=== PATIENT | male | born 1950 | race Caucasian/White ===

== ENCOUNTER → 2016-08-30 | Outpatient (CLI) | payer MEDICARE | END | disposition home or self-care (01) | LOC: LABPAT 15:35 | PROVIDERS: ATTEND Orthopaedic Surgery Orthopaedic Surgery of the Spine | DX: Z01.812 Encounter for preprocedural laboratory examination (principal) | CPT/HCPCS: 87070 ==

== ENCOUNTER → 2016-09-02 | Outpatient (CLI) | payer MEDICARE | LOC: LABWHC1 10:00 | PROVIDERS: ATTEND Orthopaedic Surgery Orthopaedic Surgery of the Spine | DX: Z01.812 Encounter for preprocedural laboratory examination (principal) | CPT/HCPCS: 86850; 86900; 86901 ==

== ENCOUNTER 2016-09-07 12:35 | Inpatient (IN) | payer MEDICARE, OTHER ==
[2016-09-01 14:35] VITALS: BMI 35.9
[~2016-09-07 12:35] MED LIST: BACITRACIN 50,000 UNIT, POLYMYXIN B 500,000 UNIT in SODIUM CHLORIDE 0.9% IRRIGATIO 1,00... IRRIGATION ONE; DEXAMETHASONE SOD PHOSPHATE 10 MG/ML 1 ML VIAL IV ONE; HYDROmorphone 1 MG/ML 1 ML SYRINGE IVP PRN; LACTATED RINGERS 1,000 ML IV SCH; MIDAZOLAM 2 MG/2 ML VIAL IV PRN; ONDANSETRON 4 MG/2 ML VIAL IVP ONE; ceFAZolin 2 GM in SODIUM CHLORIDE 0.9% 100 ML IVPB ONE
[2016-09-07] MEDS ORDERED: LIDOCAINE 1% 20 ML VIAL (10MG/ML) FOR IV START INTRADERMA ONE (13:12)
[2016-09-07] MEDS ORDERED: LIDOCAINE 1% INJ 10MG/ML (20 ML MDV) ONE (15:54)
[2016-09-07] MEDS ORDERED: PHENYLEPHRINE-0.9% NACL SYG 1 MG/10 ML SYRINGE ONE (15:54)
[2016-09-07] MEDS ORDERED: GLYCOPYRROLATE 0.2 MG/ML 2 ML VIAL ONE (15:54)
[2016-09-07] MEDS ORDERED: PROPOFOL 10 MG/ML 20 ML VIAL IV ONE (15:54)
[2016-09-07] MEDS ORDERED: fentaNYL (PF) 50 MCG/ML 2 ML AMP ONE (15:54)
[2016-09-07] MEDS ORDERED: MIDAZOLAM 2 MG/2 ML VIAL ONE (15:54)
[2016-09-07] MEDS ORDERED: SUCCINYLCHOLINE CHLORIDE 100 MG/5 ML SYR IV ONE (15:54)
[2016-09-07] MEDS ORDERED: LIDOCAINE 0.5%-EPI 1:200,000 50 ML VIAL SQ ONE (16:32)
[2016-09-07] MEDS ORDERED: GELATIN SPONGE,ABSORB (LARGE) 1 EACH SPONGE TOPICAL ONE (16:32)
[2016-09-07] MEDS ORDERED: methylPREDNISolone ACETATE 80 MG/ML 1 ML VIAL MISCELLANE ONE (16:32)
[2016-09-07] MEDS ORDERED: LACTATED RINGERS 1,000 ML IV ONE (17:03)
[2016-09-07] MEDS ORDERED: HYDROcodone/APAP 5-325MG 1 EACH TAB PO PRN ×2 (17:17)
[2016-09-07] MEDS ORDERED: KETOROLAC 30 MG/ML 1 ML VIAL IVP PRN (17:17)
[2016-09-07] MEDS ORDERED: IBUPROFEN 600 MG TAB PO PRN (17:17)
[2016-09-07] MEDS ORDERED: HYDROmorphone 1 MG/ML 1 ML SYRINGE IVP PRN ×4 (17:17)
[2016-09-07] MEDS ORDERED: DIAZEPAM 5 MG TAB PO PRN (17:17)
[2016-09-07] MEDS ORDERED: BENZOCAINE/MENTHOL LOZENG 1 EACH LOZENGE MUCOUS MEM PRN (17:17)
--- NOTE | 2016-09-07 17:17 | P.OP ---
Date of Procedure: 09/07/16 Preoperative Diagnosis: Herniated nucleus pulposis L4 5, degenerative disc disease L4 5, lower extremity radiculopathy Postoperative Diagnosis: Same Anesthesia: GETA Pathology: none sent Condition: stable Disposition: PACU Description of Procedure: BRIEF OPERATIVE NOTE Preoperative Diagnosis: Herniated nucleus pulposis L4 5, degenerative disc disease L4 5, lower extremity radiculopathy Postoperative Diagnosis: Same Procedure: Laminectomy and decompression L4 5 Discectomy for decompression L4 5 Use of fluoroscopic guidance Surgeon: Dr. Andrade Finance Broker: Emeka Villatoro is present throughout the entire the case persistence during positioning, dissection, exposure, visualization, and all crucial elements of the case as well as closure. Anesthesia: General anesthesia Estimated blood loss: Approximately 50 mL Complications: None apparent Components implanted: None Disposition: To recovery room in good stable condition. OPERATIVE INDICATIONS The patient has been having issues in their lower back and lower extremities. He had acute change fairly recently with his back and his left lower extremity with severe radiculopathy his left lower extremity which is causing him severe debility. His found have a large left paracentral disc herniation at L4 5 which correlated well with his lower extremity symptoms. He had a number of chronic changes as well including degenerative disc changes at L3 4 and L4 5. The patient has been through conservative treatment. He is not having any benefit despite aggressive conservative treatment. We discussed different treatment options including conservative continuing conservative treatment or possibly surgical intervention with decompression alone versus decompression and fusion. We discussed various treatment options including surgery, and the patient wishes to proceed with surgery We discussed the risk, patient's alternatives and benefits of surgery including but not limited to, risk of bleeding risk of infection, risk of need for further surgery, risk of decreased , loss of motion, loss of function, nerve damage, paralysis, heart attack, blindness and . OPERATIVE SUMMARY After discussing all the risks, patient alternatives and benefits at length, the patient elected to proceed with surgical intervention, signed informed consent, and presented for their procedure. The patient was seen and examined in the preoperative holding area and the surgical site was marked. The patient was given antibiotics and brought to the operating room. The patient was sedated and intubated by anesthesia in standard fashion. The patient was positioned on to the operating room table in a prone position on the appropriate frame which was well-padded and well molded. We were careful to pad any bony prominences and pressure points. We were careful to maintain the patient's cervical spine and good neutral alignment and position throughout. The patient was prepped and draped in a normal standard fashion. An appropriate timeout and keystone protocol performed. We were able to proceed with the surgery. Fluoroscopy was utilized to establish the appropriate level. The local wound area was infiltrated with local anesthetic. An incision was made at the midline longitudinally over the appropriate levels at L4 5. Dissection was taken down subcutaneously to the level of the fascia which was split midline. Dissection was taken over the lamina. Intraoperative fluoroscopy was taken which showed a marker at the appropriate level at L4 5. With the appropriate level positively confirmed, we were able to proceed with laminectomy. The wound was copiously irrigated and suctioned dry as had been done periodically throughout the case. I performed a laminectomy with a combination of curettes and a high-speed bur and Kerrison rongeurs. A small medial facetectomy was performed again further access. A partial foraminotomy was also performed. Portions of the ligamentum flavum were taken down to expose the dura and traversing nerve root. I was able to mobilize the traversing nerve root and gain access to the disc space. Note was made of obvious compression from the disc. Protecting the soft tissue structures, a small annulotomy was established. I was able to perform discectomy and remove any extruded disc fragments and any loose fragments from within the disc itself. There are number of small fragment extruded and 1 large fragment extruded which were removed. There is some significant disc desiccation noted. I tried to preserve the disc annulus that appeared stable. There were no further extruded fragments noted. There is no evidence of dural tear or leak. Good hemostasis maintained. The wound was copiously irrigated and suctioned dry. Good decompression and discectomy was noted. We were able to proceed with closure. The fascia was closed for a watertight closure. The subcuticular tissue was closed with absorbable suture. The wound was cleaned and dried and dressed with the appropriate dressing. The drapes were broken down. The patient was gently rolled back onto their hospital bed being careful to maintain their cervical spine and good neutral alignment and position. They were woken up by anesthesia, extubated, and brought to the recovery room in good stable condition. The patient will be admitted to the hospital for observation and for appropriate postoperative care, medical management and monitoring. We will continue to follow them closely about the postoperative course.
[2016-09-07] MEDS ORDERED: SODIUM CHLORIDE 0.9% 1,000 ML IV SCH (17:30)
[2016-09-07 17:59] VITALS: RESP 18
[2016-09-07 18:49] VITALS: BP 116/76; PULSE 105; TEMP 97.2
[2016-09-07] MEDS ORDERED: GABAPENTIN 300 MG CAP PO SCH (21:00)
[2016-09-08] MEDS ORDERED: ceFAZolin 2 GM in SODIUM CHLORIDE 0.9% 100 ML IVPB SCH ×2
[2016-09-08] MEDS ORDERED: CYANOCOBALAMIN 500 MCG TAB PO SCH (07:30)
[2016-09-08] MEDS ORDERED: NON-FORMULARY DRUG (Omega-3 Fatty Acids/Fish Oil [Fish Oil 1,000 Mg Softgel] 1 CAP) PO SCH (09:00)
[2016-09-08] MEDS ORDERED: LOSARTAN-HCTZ 50-12.5 MG 1 EACH TAB PO SCH (09:00)
[2016-09-08] MEDS ORDERED: MULTIVITAMINS, THERA 1 EACH TAB PO SCH (09:00)
[2016-09-08] MEDS ORDERED: ASPIRIN 81 MG CHEW PO SCH (09:00)
--- NOTE | 2016-09-08 09:01 | FL ---
EXAMINATION TYPE: FL guidance operating room DATE OF EXAM: 09/07/2016 4:52 PM HISTORY: Flouroscopy time 2 seconds of fluoroscopy provided. IMPRESSION: 1. Fluoroscopy time.
--- NOTE | 2016-09-08 09:02 | XR ---
EXAM TYPE: LUMBAR SPINE X RAY SERIES COMPARISON: NONE HISTORY: Postop TECHNIQUE: One view is submitted. FINDINGS: Metallic device seen overlying the posterior margin of the upper lowest lumbar segment near the level of the spinous process. IMPRESSION: 1. Intraoperative localization.
== END 2016-09-07 20:10 | disposition home or self-care (01) | DRG 520 ==
LOC: 2ORMAIN 12:35 → 5MS5E 17:30
PROVIDERS: ADMIT Orthopaedic Surgery Orthopaedic Surgery of the Spine; ATTEND Orthopaedic Surgery Orthopaedic Surgery of the Spine
PROC: 0ST20ZZ Resection of Lumbar Vertebral Disc, Open Approach (ICD-10-PCS; principal; 2016-09-07 16:15)
DX: M51.16 Intervertebral disc disorders with radiculopathy, lumbar region (principal); I10 Essential (primary) hypertension; Z79.899 Other long term (current) drug therapy; Z87.891 Personal history of nicotine dependence
CPT/HCPCS: 72020; 86850; 86900; 86901

== ENCOUNTER 2018-06-13 06:22 | Day surgery (SDC) | payer MEDICARE ==
[2018-06-08 15:00] VITALS: BMI 38.0
[~2018-06-13 06:22] MED LIST changes: -BACITRACIN 50,000 UNIT, POLYMYXIN B 500,000 UNIT in SODIUM CHLORIDE 0.9% IRRIGATIO 1,00... IRRIGATION ONE; -DEXAMETHASONE SOD PHOSPHATE 10 MG/ML 1 ML VIAL IV ONE; -HYDROmorphone 1 MG/ML 1 ML SYRINGE IVP PRN; +LIDOCAINE 1% 20 ML VIAL (10MG/ML) FOR IV START INTRADERMA PRN; -MIDAZOLAM 2 MG/2 ML VIAL IV PRN; -ONDANSETRON 4 MG/2 ML VIAL IVP ONE; -ceFAZolin 2 GM in SODIUM CHLORIDE 0.9% 100 ML IVPB ONE
[2018-06-13 07:14] VITALS: TEMP 98.4
[2018-06-13] MEDS ORDERED: LIDOCAINE 1% INJ 10MG/ML (20 ML MDV) ONE (07:38)
[2018-06-13] MEDS ORDERED: MIDAZOLAM 2 MG/2 ML VIAL ONE (07:38)
[2018-06-13] MEDS ORDERED: PROPOFOL 10 MG/ML 20 ML VIAL IV ONE (07:38)
[2018-06-13] MEDS ORDERED: fentaNYL (PF) 50 MCG/ML 2 ML AMP ONE (07:38)
--- NOTE | 2018-06-13 07:42 | P.GSHP ---
History of Present Illness H&P Date: 06/13/18 Chief Complaint: History of diverticulitis This a 68-year-old male who presents today for colonoscopy. Patient has history of diverticulitis. Past Medical History Past Medical History: Cancer, Hypertension, Musculoskeletal Disorder, Osteoarthritis (OA) Additional Past Medical History / Comment(s): hx. skin cancer,DIVERTICULAR DISEASE, CERVICAL MYELOPATHY. History of Any Multi-Drug Resistant Organisms: None Reported Past Surgical History: Back Surgery, Orthopedic Surgery Additional Past Surgical History / Comment(s): left knee surg., LEFT hand MIDDLE surg. cervical fusion c3-4,c4-5, c5-6, c6-7, LOWER BACK DISC SX Past Anesthesia/Blood Transfusion Reactions: No Reported Reaction Smoking Status: Former smoker - Past Family History Father Family Medical History: Cancer Mother Family Medical History: Myocardial Infarction ([place]) Medications and Allergies Home Medications Medication Instructions Recorded Confirmed Type Aspirin 81 mg PO DAILY 03/10/16 06/08/18 History Cyanocobalamin [Vitamin B-12] 500 mcg PO DAILY 03/10/16 06/13/18 History Losartan-Hctz 50-12.5 mg [Hyzaar 1 tab PO DAILY 03/10/16 06/13/18 History 50-12.5] Orient-3 Fatty Acids/Fish Oil [Fish 1 cap PO DAILY 03/10/16 06/08/18 History Oil 1,000 mg Softgel] Cyclobenzaprine [Flexeril] 10 mg PO HS 06/08/18 06/13/18 History traMADol HCL [Ultram] 50 mg PO HS 06/08/18 06/13/18 History Allergies Allergy/AdvReac Type Severity Reaction Status Date / Time No Known Allergies Allergy Verified 06/13/18 07:15 Surgical - Exam Vital Signs Temp Pulse Resp BP Pulse Ox 98.4 F 104 H 17 137/86 94 L 06/13/18 07:13 06/13/18 07:13 06/13/18 07:13 06/13/18 07:13 06/13/18 07:13 - General well developed, no distress - Eyes PERRL - ENT normal pinna - Neck no masses - Respiratory normal expansion - Cardiovascular Rhythm: regular - Abdomen Abdomen: soft, non tender Assessment and Plan Assessment: History of diverticulitis. We'll perform colonoscopy.
--- NOTE | 2018-06-13 07:55 | P.OP ---
Date of Procedure: 06/13/18 Preoperative Diagnosis: Diverticulitis Postoperative Diagnosis: Diverticulitis Procedure(s) Performed: Colonoscopy Anesthesia: MAC Surgeon: Heber Pace Pathology: other (Sigmoid colon) Condition: stable Disposition: PACU Description of Procedure: The patient's placed on the endoscopy table in the lateral position. He received IV sedation. Digital rectal exam was performed which revealed no abnormalities. The flexible colonoscope was then placed patient anus passed throughout the entire colon. The ileocecal valve was visualized. The cecum, ascending and transverse colon appeared normal. The recent descending colon appeared normal. In the sigmoid colon there is evidence of diverticulosis. The mucosa appeared to be inflamed. A biopsies performed. This was performed scope forcep. The scope was then withdrawn into the rectum and this appeared normal. Scope withdrawn for patient.
[2018-06-13 08:00] VITALS: PULSE 91; RESP 16
[2018-06-13 08:17] VITALS: BP 112/74
== END 2018-06-13 08:56 | disposition home or self-care (01) ==
LOC: ORWHC2ENDO 06:22
PROVIDERS: ATTEND Surgery
DX: K57.92 Diverticulitis of intestine, part unspecified, without perforation or abscess without bleeding (principal); I10 Essential (primary) hypertension; M19.90 Unspecified osteoarthritis, unspecified site; M62.838 Other muscle spasm; Z79.82 Long term (current) use of aspirin; Z79.891 Long term (current) use of opiate analgesic; Z79.899 Other long term (current) drug therapy; Z98.1 Arthrodesis status; Z85.828 Personal history of other malignant neoplasm of skin; Z87.891 Personal history of nicotine dependence
CPT/HCPCS: 88305; 45380; J2250; J2001; J3010; J2704

== ENCOUNTER → 2018-12-12 | Outpatient (CLI) | payer MEDICARE ==
--- NOTE | 2018-12-12 22:47 | MR ---
EXAMINATION TYPE: MR lumbar spine wo/w con DATE OF EXAM: 12/12/2018 COMPARISON: NONE HISTORY: Low back pain for 7 months and lumbar DDD, history of surgery 2017. TECHNIQUE: Multiplanar, multisequence images of the lumbar spine is performed without and with IV contrast, util izing 12 mL intravenous Gadavist FINDINGS: Sagittal images of the lumbar spine show vertebral body heights and alignment to appear sat isfactory. Multilevel disc desiccation is present. There is moderate disc space narrowing with vacuu m disc phenomenon L4-L5 level. There is mild disc space narrowing L3-L4 level. The conus medullaris i s normal in position and signal ending at L1 level. With some heterogeneous endplate changes are pres ent most prominent L4-L5 level. Mild to moderate multilevel anterior spurring is seen. No suspicious postcontrast enhancement is noted. Axial images at the T12-L1 level shows mild broad-based disc bulge minimally effacing the anterior th ecal sac. Axial images at the L1-L2 level are felt within normal limits. Axial images at L2-L3 level shows disc desiccation and mild broad disc bulge with asymmetric mild lef t-sided anterior inferior neural foraminal narrowing due to foraminal disc protrusion component axial image 24 and sagittal image 5. Axial images at the L3-L4 level shows moderate broad-based disc bulge effacing anterior thecal sac wi th mild facet degenerative changes bilaterally. There is moderate right greater than left bilateral n eural foraminal narrowing, some encroachment on the right L3 nerve difficult to exclude sagittal imag e 13. Axial images at the L4-L5 level show moderate to severe broad disc bulge with left paracentral/forami nal disc protrusion component axial image 10 effacing anterolateral thecal sac. Moderate left greater than right facet degenerative changes are present. There is advanced left and mild to moderate right -sided neural foraminal narrowing with encroachment on left L4 nerve though present sagittal image 4 and axial image 10. Axial images at the L5-S1 level mild broad disc bulge mild facet degenerative changes but spinal kit l is preserved and bilateral neural foramina are patent. No suspicious incidental retroperitoneal findings are seen. IMPRESSION: Multilevel degenerative changes of lumbar spine most prominent at L3-L4 and L4-L5 levels as detailed above.
== END | disposition home or self-care (01) ==
LOC: RADMRIMAIN 15:36
PROVIDERS: ATTEND Family Medicine
DX: M47.816 Spondylosis without myelopathy or radiculopathy, lumbar region (principal)
CPT/HCPCS: 72158; A9585

== ENCOUNTER → 2019-08-01 | Outpatient (CLI) | payer MEDICARE ==
--- NOTE | 2019-08-01 15:39 | XR ---
EXAMINATION TYPE: XR chest 2V DATE OF EXAM: 08/01/2019 COMPARISON: Prior chest x-ray dated 05/28/2018 HISTORY: Z01.818 TECHNIQUE: Frontal and lateral views of the chest are obtained. FINDINGS: There is no focal air space opacity, pleural effusion, or pneumothorax seen. The cardiac silhouette size is within normal limits. The osseous structures are intact, postop changes noted in the cervical spine, thoracic spondylosis is present. IMPRESSION: No acute cardiopulmonary process.
== END | disposition home or self-care (01) ==
LOC: LABPAT 14:16
PROVIDERS: ATTEND Orthopaedic Surgery Orthopaedic Surgery of the Spine
DX: Z01.818 Encounter for other preprocedural examination (principal); Z01.812 Encounter for preprocedural laboratory examination
CPT/HCPCS: 71046; 87070

== ENCOUNTER 2019-08-12 12:25 | Inpatient (IN) | payer MEDICARE ==
[2019-08-08 11:25] VITALS: BMI 36.6
[~2019-08-12 12:25] MED LIST changes: +BACITRACIN 50,000 UNIT, POLYMYXIN B 500,000 UNIT in SODIUM CHLORIDE 0.9% IRRIGATIO 1,00... IRRIGATION ONE; +DEXAMETHASONE SOD PHOSPHATE 10 MG/ML 1 ML VIAL IV ONE; +HYDROmorphone 0.5 MG/0.5 ML SYRINGE IVP PRN; -LACTATED RINGERS 1,000 ML IV SCH; -LIDOCAINE 1% 20 ML VIAL (10MG/ML) FOR IV START INTRADERMA PRN; +MIDAZOLAM 2 MG/2 ML VIAL IV PRN; +ONDANSETRON 4 MG/2 ML VIAL IVP ONE; +SODIUM CHLORIDE 0.9% IRRIGATIO 1,000 ML IRRIGATION ONE
[2019-08-12] MEDS: LACTATED RINGERS 1,000 ML IV SCH (13:32)
[2019-08-12] MEDS ORDERED: .MORPHINE SULFATE (INJ) 10 MG/ML SYRINGE ONE (15:08)
[2019-08-12] MEDS ORDERED: ONDANSETRON 4 MG/2 ML VIAL ONE (15:08)
[2019-08-12] MEDS ORDERED: NEOSTIGMINE 1 MG/ML 10 ML VIAL ONE (15:08)
[2019-08-12] MEDS ORDERED: LIDOCAINE 1% INJ 10MG/ML (20 ML MDV) ONE (15:08)
[2019-08-12] MEDS ORDERED: HEPARIN SODIUM,PORCINE 10,000 UNIT/ML 1 ML VIAL ONE (15:08)
[2019-08-12] MEDS ORDERED: SODIUM CHLORIDE 0.9% IRRIG 1,000 ML BTL IRRIGATION ONE (15:08)
[2019-08-12] MEDS ORDERED: fentaNYL (PF) 50 MCG/ML 2 ML AMP ONE (15:08)
[2019-08-12] MEDS ORDERED: ROCURONIUM BROMIDE 10 MG/ML 5 ML VIAL IV ONE (15:08)
[2019-08-12] MEDS ORDERED: GLYCOPYRROLATE 0.2 MG/ML 2 ML VIAL ONE (15:08)
[2019-08-12] MEDS ORDERED: PROPOFOL 10 MG/ML 20 ML VIAL IV ONE (15:08)
[2019-08-12] MEDS ORDERED: SUCCINYLCHOLINE CHLORIDE 100 MG/5 ML SYR IV ONE (15:08)
[2019-08-12] MEDS ORDERED: MIDAZOLAM 2 MG/2 ML VIAL ONE (15:08)
[2019-08-12] MEDS ORDERED: BUPIVACAINE (PF) 0.5% 30 ML VIAL SQ ONE ×3 (15:56)
[2019-08-12] MEDS ORDERED: LIDOCAINE 2%-EPI 1:100,000 20 ML VIAL SQ ONE ×3 (15:56)
[2019-08-12] MEDS ORDERED: LACTATED RINGERS 1,000 ML IV ONE ×3 (17:30→20:09)
[2019-08-12] MEDS ORDERED: ONDANSETRON 4 MG/2 ML VIAL IVP PRN (19:40)
[2019-08-12] MEDS ORDERED: HYDROcodone/APAP 5-325MG 1 EACH TAB PO PRN (19:40)
[2019-08-12] MEDS ORDERED: HYDROmorphone 0.5 MG/0.5 ML SYRINGE IVP PRN (19:40)
[2019-08-12] MEDS ORDERED: MAGNESIUM HYDROXIDE 2,400 MG/10 ML CUP PO PRN (19:40)
[2019-08-12] MEDS ORDERED: BENZOCAINE/MENTHOL LOZENG 1 EACH LOZENGE MUCOUS MEM PRN (19:40)
[2019-08-12] MEDS ORDERED: METHOCARBAMOL 750 MG TAB PO PRN (19:42)
--- NOTE | 2019-08-12 19:49 | P.OP ---
Date of Procedure: 08/12/19 Preoperative Diagnosis: Spinal stenosis so 34 L4 5, recurrent stenosis L4 5, degenerative disc disease L3 4 L4 5, lower extremity radiculopathy, lower extremity weakness Postoperative Diagnosis: Same Anesthesia: GETA Pathology: none sent Condition: stable Disposition: PACU Description of Procedure: DESCRIPTION OF PROCEDURE(S): BRIEF OPERATIVE NOTE Preoperative Diagnosis: Spinal stenosis so 34 L4 5, recurrent stenosis L4 5, degenerative disc disease L3 4 L4 5, lower extremity radiculopathy, lower extremity weakness, history of laminectomy L4 5 Postoperative Diagnosis:same Procedure: Laminectomy and decompression L3 4 Revision laminectomy decompression L4 5 Minimally invasive Posterior lateral decompression and facet fusionL3 4 L4 5 Minimally invasive Transforaminal lumbar interbody fusion for a 360 fusionL3 4 L4 5 Discectomy for decompressionL3 4 L4 5 Placement of interbody graftL3 4 L4 5 Local autogenous bone grafting Use of computer guided navigation for placement of hardware at L3 4 and 5 Harvesting of bone marrow aspirate via the pedicle of L3 Use of Cell Saver Use of bone graft extenders Surgeon: Dr. Andrade Remedial Teacher: Emeka Villatoro is present throughout the entire the case persistence during positioning, dissection, exposure, visualization, and all crucial elements of the case as well as closure. Anesthesia: General anesthesia Estimated blood loss: approximately 350 mL with 141 given back through Cell Saver Complications: None apparent Components implanted: K2M middle evasive [place] pedicle screw system with 6.5 x 45 mm screws with cascadia interbody cages Disposition: To recovery room in good stable condition. OPERATIVE INDICATIONS The patient has had long-standing issues in their lower back and lower extremities. patient was having worsening symptoms in his back and his lower extremities despite aggressive conservative treatment. He is found have significant spinal stenosis with degenerative disease and foraminal stenosis which correlated well with his low back lower extremity symptoms. He had had a history of laminectomy decompression discectomy at L4 5 in the past which initially did very well for him however over the past several months he has been having worsening symptoms which can really well with his imaging findings. His found have recurrent stenosis L4 5 and new stenosis L3 4 and L4 5. The patient has been through conservative treatment. We discussed various treatment options including surgery, and the patient wishes to proceed with surgery We discussed the risk, patient's alternatives and benefits of surgery including but not limited to, risk of bleeding risk of infection, risk of need for further surgery, risk of decreased, loss of motion, muscle function, malunion nonunion, hardware failure, nerve damage, paralysis, heart attack, blindness and . OPERATIVE SUMMARY After discussing all the risks, patient alternatives and benefits at length, the patient elected to proceed with surgical intervention, signed informed consent, and presented for their procedure. The patient was seen and examined in the preoperative holding area and the surgical site was marked. The patient was given antibiotics and brought to the operating room. The patient was sedated and intubated by anesthesia in standard fashion. The patient was positioned on to the operating room table in a prone position on the appropriate frame which was well-padded and well molded. We were careful to pad any bony prominences and pressure points. We were careful to maintain the patient's cervical spine and good neutral alignment and position throughout.I was able to place bony pins at the right iliac crest for reference for the computer navigation system. The patient was prepped and draped in a normal standard fashion. An appropriate timeout and keystone protocol performed. We were able to proceed with the surgery. The local wound area was infiltrated with local anesthetic. I was able utilize the computer navigation system as well as C-arm guidance to establish appropriate position over the pedicles bilaterally at the appropriate levels At L3 4 and 5. With the appropriate levels confirmed was able to make small stab incisions over the appropriate pedicle sites bilaterally. Utilizing the computer navigation system C-arm in his house able to establish a Jamshidi needle over the lateral aspect of the pedicle and advanced the trocar into the pedicle being careful not to breech superiorly inferiorly medially or laterally. Position was confirmed regularly with the computer guided system as well Augustina and lateral images on C-arm. I was able to establish the trocar into the pedicle appropriately into the posterior aspect of the vertebral body bilaterally at the appropriate levels. This was done at each of the pedicle positions and each of the vertebrae At L3 4 and 5. at L3 on the right I was able to withdraw approximately 30 mL of bone marrow aspirate for harvesting for later usage in the case to supplement the bone graft. I was able place the guidewire into the trocar and into the vertebral body appropriately under C-arm guidance. Dissection was taken down over the wire to the appropriate starting position for the screw placed At L3 4 and 5. The appropriate length screw was chosen, threaded over the guidewire and screwed appropriately into the pedicle and vertebral body under C-arm guidance in excellent alignment and position with good bony purchase. This is done at each of the screw sites at the appropriate levelsAt L3 4 and 5. With the screws intact I extended the incision to connect the screw hole sites on the most symptomatic side On the left. I dissected down to establish access over the pars and lamina to the base of the spinous process. I was able to expose the facet joint. The capsule the facet was taken down and showed some facet arthrosis at the joint. I was able to use a combination of curettes and Kerrison rongeurs and a high-speed drill to take down the facet joint and do a facetectomy. Partial laminectomy was also performed. I was able get excellent foraminal decompression and central decompression with undermining across midline to perform a laminectomy centrally and contralaterally. there had been prior laminectomy at L4 5 and there was some scar tissue which had to be meticulously taken down. There hadn't been any prior decompression L3 4 and was able to excellent central and bilateral foraminal decompression. As able get good central decompression. The ligamentum flavum was taken down to further decompress centrally and at bilateral neural foramen. I was able to expose the disc space and visualize the traversing nerve root. Note was made of some disc protrusion at the level causing further compression of the nerve root. I was able to establish a annulotomy at the appropriate level protecting soft tissue and neural structures. Note was made of some disc desiccation at the disc. I performed a complete discectomy with accommodation of curettes and rasps and scrapers. I was able get good endplate preparation at the disc space. I sized for the appropriate size interbody spacer protecting the soft tissue and neural structures. The wound was copiously irrigated and suctioned dry. There is no evidence of any dural tear or leak. I was able to pack the disc space with local autogenous bone graft as well as a small amount of bone graft which was also placed into the interbody cage itself. Protecting the soft tissue structures and neural structures I was able place the interbody cage in good alignment and good position with good fit and fill at the interbody space. His issues was confirmed with C-arm guidance. this was done first L4 5 and L3 4 Good hemostasis maintained. There is no evidence of any dural tear or leak. The wound was irrigated and suctioned dry. With the hardware intact, intraoperative C-arm imaging was again taken which showed good alignment and position of the hardware at the appropriate levels At L3 4 and 5. We were then able to measure, contour and place the rods and appropriate hardware bilaterally. I was able to place capcrews, tighten them down, and torque them with the torque screwdriver appropriately. With this intact I was able to place the local autogenous bone graft with additional bone graft enhancer as necessary into the posterior lateral gutters over the decorticated transverse processes. The remainder of the bone graft was placed over the facet joint on the contralateral side after taking down the facet joint capsule. With the bone graft intact, a stable construct, and good decompression at the appropriate levels, we were able to proceed with closure. Good hemostasis was maintained. There is no evidence of dural tear or leak. The fascia was closed for a watertight closure. he subcuticular tissue was closed with absorbable suture. The wound was cleaned and dried and dressed with the appropriate dressing. The drapes were broken down. The patient was gently rolled back onto their hospital bed being careful to maintain their cervical spine and good neutral alignment and position. They were woken up by anesthesia, extubated, and brought to the recovery room in good stable condition. The patient will be admitted to the hospital for appropriate postoperative care, medical management and monitoring. We will continue to follow them closely about the postoperative course.
[2019-08-12] MEDS: MEPERIDINE 50 MG/ML SYRINGE IVP ONE ×2 (19:56→20:16)
[2019-08-12] MEDS: ENALAPRILAT 1.25 MG/ML 1 ML VIAL IVP ONE ×2 (20:35→20:55)
[2019-08-12] MEDS: SODIUM CHLORIDE 0.9% 1,000 ML IV SCH ×2 (21:01→21:15)
[2019-08-12] MEDS: DORZOLAMIDE HCL 2% DROPS 10 ML BTL BOTH EYES SCH (21:57)
[2019-08-12] MEDS: HYDROmorphone 1 MG/ML 1 ML SYRINGE IVP PRN (22:24)
[2019-08-12] MEDS: HYDROcodone/APAP 5-325MG 1 EACH TAB PO PRN (23:36)
[2019-08-13] MEDS: HYDROmorphone 1 MG/ML 1 ML SYRINGE IVP PRN ×5 (04:07→23:44)
[2019-08-13] MEDS: TAMSULOSIN 0.4 MG CAP.ER.24H PO SCH (04:08)
[2019-08-13] MEDS: LACTATED RINGERS 1,000 ML IV SCH (06:03)
[2019-08-13] MEDS: HYDROcodone/APAP 5-325MG 1 EACH TAB PO PRN ×3 (06:08→18:04)
[2019-08-13 07:47] LABS: Basophils # (A) 0.1 k/uL (0-0.2); Basophils % (A) 1 %; Eosinophils % (A) 0 %; HCT 42.6 % (39.0-53.0); Lymphocytes # (A) 0.9 k/uL (1.0-4.8); Lymphocytes % (A) 9 %; MCH 31.6 pg (25.0-35.0); MCV 95.9 fL (80.0-100.0); Mean Platelet Volume 7.6; Monocytes # (A) 0.7 k/uL (0-1.0); Monocytes % (A) 7 %; Neutrophils # (A) 7.7 k/uL (1.3-7.7); Neutrophils % (A) 81 %; Platelet Count 166 k/uL (150-450); RBC 4.44 m/uL (4.30-5.90); RDW 12.7 % (11.5-15.5); WBC 9.5 k/uL (3.8-10.6)
[2019-08-13 07:54] LABS: African American GFR (CKD) >90 (>60 ml/min/1.73 sqM); Anion Gap 7 mmol/L; Blood Urea Nitrogen 16 mg/dL (9-20); Calcium 8.6 mg/dL (8.4-10.2); Carbon Dioxide 25 mmol/L (22-30); Chloride 104 mmol/L (98-107); Glucose 121 mg/dL (74-99); Non-African American GFR(CKD) 89 (>60 ml/min/1.73 sqM); Potassium 3.9 mmol/L (3.5-5.1); Sodium 136 mmol/L (137-145)
--- NOTE | 2019-08-13 08:13 | P.PN ---
Progress Note - Text Progress Note Date: 08/13/19 Orthopedic Spine: History of present illness: Patient is a pleasant 69-year-old male who is seen and examined at the bedside following posterior lateral decompression and fusion performed yesterday. Patient states they are doing ok postsurgically. His leg pain is controlled. He continues to have significant pain at his surgical sites of his lumbar spine. He is currently lying comfortably in bed. He has not been out of bed with physical therapy. His Fitzgerald catheter was discontinued this morning. He states he has not had difficulty with urination. Currently does not complain of nausea, vomiting, fever, or chills. Patient has had breakfast brought to him this morning but has not felt like eating. His food is sitting at the bedside. Patient will plan to be seen and examined by medicine for medical management during his admission to the hospital. Physical Exam Lumbar Fusion: Status post surgical day number 1 Patient is awake, alert, and oriented 3 Vital signs stable Good chest excursion with deep inspiration and expiration Abdomen soft nontender Dorsiflexion, plantarflexion, and extensor hallucis longus positive sustained bilaterally No signs or symptoms of DVT; no calf pain; pneumatic cuffs not currently intact bilateral lower extremities Opti-foam dressings remain intact over the surgical sites Neurovascularly intact bilaterally lower extremities Assessment: L3-4 and L4-5 minimally invasive posterior lateral decompression and fusion with transforaminal lumbar interbody fusion L3-4 and L4-5 degenerative disc disease Lower extremity radiculopathy Lower extremity weakness Low back pain L3-4 and L4-5 spinal canal stenosis with recurrent stenosis at L4-5 Hypertension Plan: 1. Ambulate as tolerated; work with Physical Therapy to increase mobilization 2. Continue pain control with IV and oral medications 3. Dressings to remain intact; patient may shower with dressing intact 4. Medical management can continue to manage patient for patient's other medic al diagnoses including hypertension 5. We will continue to follow the patient closely 6. Patient can follow-up with Emeka Shipman PA-C or Dr. Garland Andrade at [facility] in 2-3 weeks following discharge
[2019-08-13] MEDS ORDERED: NON FORMULARY DRUG (Omega-3 Fatty Acids/Fish Oil [Fish Oil 1,000 Mg Softgel] 1 CAP) PO SCH (09:00)
[2019-08-13] MEDS: LOSARTAN-HCTZ 50-12.5 MG 1 EACH TAB PO SCH (10:16)
[2019-08-13] MEDS: MULTIVITAMINS, THERA 1 EACH TAB PO SCH (10:17)
[2019-08-13] MEDS: DORZOLAMIDE HCL 2% DROPS 10 ML BTL BOTH EYES SCH ×2 (10:17→20:42)
[2019-08-13] MEDS: ASPIRIN 81 MG PO SCH (10:17)
[2019-08-13] MEDS: SENNOSIDES-DOCUSATE SODIUM 1 EACH TAB PO SCH (10:17)
[2019-08-13] MEDS: SODIUM CHLORIDE 0.9% 1,000 ML IV SCH (12:17)
--- NOTE | 2019-08-13 12:18 | FL ---
Fluoroscopy HISTORY: Lumbar fusion L3-L5 28 seconds fluoroscopy time supplied to the referring clinician. 6 intraoperative C-arm images docum ent the procedure. See dictated report from orthopedic surgery.
--- NOTE | 2019-08-13 12:19 | XR ---
Limited lumbar spine HISTORY: L3 L5 fusion 6 intraoperative C-arm images document the procedure
[2019-08-13] MEDS: HEPARIN SODIUM,PORCINE 5,000 UNIT/ML 1 ML VIAL SQ SCH ×2 (15:03→20:37)
--- NOTE | 2019-08-13 15:34 | XR ---
EXAMINATION TYPE: XR chest 1V portable DATE OF EXAM: 08/13/2019 COMPARISON: 08/01/2019 HISTORY: Atelectasis. Shortness of breath. TECHNIQUE: Single frontal view of the chest is obtained. FINDINGS: There is no focal air space opacity, pleural effusion, or pneumothorax seen. The cardiac silhouette size is enlarged. The osseous structures are intact. Cervical spine fusion device is cammie dent. IMPRESSION: Improved aeration of the lungs. No acute cardiopulmonary process.
--- NOTE | 2019-08-13 21:50 | CONS ---
CONSULTATION REASON FOR CONSULTATION: Advice regarding DJD and hypertension and multiple medical issues, requested by Dr. Andrade. HISTORY OF PRESENT ILLNESS: This 69-year-old gentleman with a past medical history of hypertension, history of DJD, history of prostate disease, glaucoma, back surgery, being followed by Dr. Jaramillo in the outpatient setting, underwent revision laminectomy and decompression at L4-[address] Andrade. The patient is complaining of severe back pain. There is no history of any fever, rigor or chills. No history of headache, loss of consciousness, seizures. The patient complains of cough, also. PAST MEDICAL HISTORY: History of hypertension, history of DJD, history of glaucoma, history of back surgery. HOME MEDICATIONS: 1. Flomax 0.4 daily. 2. Hop[place]-3 fatty acids 1 p.o. daily. 3. Aleve 220 mg p.o. daily. 4. Multivitamins 1 p.o. daily. 5. Robaxin 1500 mg q.8 p.r.n. 6. Losartan/hydrochlorothiazide 1 p.o. daily. 7. Trusopt 2% one drop both eyes b.i.d. 8. Aspirin 81 mg p.o. daily. 9. Tylenol No.3 one p.o. b.i.d. p.r.n. ALLERGIES: NONE. FAMILY HISTORY: History of cancer in the family. SOCIAL HISTORY: History of occasional alcohol intake. Previous history of smoking. REVIEW OF SYSTEMS: ENT: No diminished hearing. No diminished vision. CARDIOVASCULAR SYSTEM: No angina, palpitations. RESPIRATORY SYSTEM: As mentioned earlier. GI: No nausea, vomiting. : No dysuria or retention. NERVOUS SYSTEM: No numbness, weakness. ALLERGY/IMMUNOLOGY: No asthma, hayfever. MUSCULOSKELETAL: As mentioned earlier. HEMATOLOGY/ONCOLOGY: No history of anemia. ENDOCRINE: No history of diabetes, hypothyroidism. CONSTITUTIONAL: As mentioned earlier. DERMATOLOGY: Negative. RHEUMATOLOGY: Negative. PSYCHIATRY: As mentioned earlier. PHYSICAL EXAMINATION: Patient alert and oriented x3. Pulse 104, blood pressure 115/75, respiration 14, temperature 99.6, pulse ox 92% on 2 L. HEENT: Conjunctivae normal. Oral mucosa moist. NECK: No jugular venous distention. No carotid bruit. No lymph node enlargement. CARDIOVASCULAR SYSTEM: S1, S2 muffled. RESPIRATORY SYSTEM: Breath sounds diminished at the bases. A few scattered rhonchi. No crackles. ABDOMEN: Soft, non-tender. No mass palpable. LEGS: No edema. No swelling. NERVOUS SYSTEM: No focal deficit. EXAMINATION OF THE BACK: Status post surgery. LABS: Labs at this time show CBC within normal limits. Sodium 136, glucose 121. ASSESSMENT: 1. Status post revision laminectomy at L4-5. 2. Postoperative cough. 3. Hyponatremia. 4. Remote history of nicotine dependence. 5. History of hypertension. 6. Degenerative joint disease. 7. History of prostate disease. 8. History of glaucoma. 9. History of diverticulitis. 10.History of cervical myelopathy. 11.Obesity with body mass index of 36. 12.Minimal tachycardia as well as hypoxia postoperatively; possibly atelectasis, as expected. RECOMMENDATIONS AND DISCUSSION: In this 69-year-old gentleman who presented after surgery, at this time I recommend resuming the home medications. I would recommend a portable chest x-ray to ensure stability. Repeat labs. Otherwise, I would also recommend incentive spirometry. DVT prophylaxis. Resume the home medications. We will follow the patient closely with you. Patient may be asked to follow with Dr. Loving closely after discharge. Thank you, Dr. Andrade, for letting us participate in the care of this patient. MMODL / IJN: [id number] /
[2019-08-14] MEDS: HYDROcodone/APAP 5-325MG 1 EACH TAB PO PRN ×3 (02:06→21:21)
[2019-08-14] MEDS: SODIUM CHLORIDE 0.9% 1,000 ML IV SCH ×3 (03:46→21:09)
[2019-08-14 08:05] LABS: African American GFR (CKD) >90 (>60 ml/min/1.73 sqM); Anion Gap 9 mmol/L; Blood Urea Nitrogen 11 mg/dL (9-20); Calcium 8.9 mg/dL (8.4-10.2); Carbon Dioxide 27 mmol/L (22-30); Chloride 100 mmol/L (98-107); Glucose 102 mg/dL (74-99); Non-African American GFR(CKD) >90 (>60 ml/min/1.73 sqM); Potassium 3.7 mmol/L (3.5-5.1); Sodium 136 mmol/L (137-145)
[2019-08-14 08:09] LABS: Basophils # (A) 0.1 k/uL (0-0.2); Basophils % (A) 1 %; Eosinophils # (A) 0.1 k/uL (0-0.7); Eosinophils % (A) 0 %; HCT 39.2 % (39.0-53.0); HGB 13.4 gm/dL (13.0-17.5); Lymphocytes # (A) 1.1 k/uL (1.0-4.8); Lymphocytes % (A) 9 %; MCHC 34.1 g/dL (31.0-37.0); MCV 93.8 fL (80.0-100.0); Monocytes # (A) 0.8 k/uL (0-1.0); Monocytes % (A) 6 %; Neutrophils % (A) 82 %; Platelet Count 171 k/uL (150-450); RBC 4.18 m/uL (4.30-5.90); RDW 12.5 % (11.5-15.5); WBC 12.3 k/uL (3.8-10.6)
[2019-08-14] MEDS: TAMSULOSIN 0.4 MG CAP.ER.24H PO SCH (08:49)
[2019-08-14] MEDS: SENNOSIDES-DOCUSATE SODIUM 1 EACH TAB PO SCH (08:49)
[2019-08-14] MEDS: DORZOLAMIDE HCL 2% DROPS 10 ML BTL BOTH EYES SCH ×2 (08:49→21:13)
[2019-08-14] MEDS: LOSARTAN-HCTZ 50-12.5 MG 1 EACH TAB PO SCH (08:49)
[2019-08-14] MEDS: MULTIVITAMINS, THERA 1 EACH TAB PO SCH (08:50)
[2019-08-14] MEDS: ASPIRIN 81 MG PO SCH (08:50)
[2019-08-14] MEDS: HYDROmorphone 1 MG/ML 1 ML SYRINGE IVP PRN ×2 (09:04→19:17)
[2019-08-14] MEDS: HEPARIN SODIUM,PORCINE 5,000 UNIT/ML 1 ML VIAL SQ SCH ×3 (09:05→21:27)
[2019-08-14] MEDS: LACTATED RINGERS 1,000 ML IV SCH ×2 (10:56→21:08)
--- NOTE | 2019-08-14 11:27 | P.PN ---
<Emeka Shipman - Last Filed: 08/14/19 11:22> Progress Note - Text Progress Note Date: 08/14/19 Orthopedic Spine: History of present illness: Patient is a pleasant 69-year-old male who is seen and examined at the bedside by myself and Dr. Garland Andrade following posterior lateral decompression and fusion performed Monday. Patient states they are doing ok postsurgically. His leg pain is controlled but is experiencing left lower extremity leg pain. He continues to have significant pain at his surgical sites of his lumbar spine. He is currently lying comfortably in bed. He has been out of bed with physical therapy and has been able to slowly ambulate some of the hallways. His Fitzgerald catheter was discontinued yesterday. He continues has some difficulty with urination. He is putting out approximately 100 mL's pro time of urination. He has had difficulty with urination in the past. He is on Flomax in the outpatient setting. He has been restarted on Flomax here in the hospital. Currently does not complain of nausea, vomiting, fever, or chills. Patient has been able to eat some fluid postoperatively. He feels he has had some improvement of his pain overall as compared to yesterday. He was having significant drainage from his surgical sites yesterday which has improved today. Patient will plan to be seen and examined by medicine for medical management during his admission to the hospital. Physical Exam Lumbar Fusion: Status post surgical day number 2 Patient is awake, alert, and oriented 3 Vital signs stable Good chest excursion with deep inspiration and expiration Abdomen soft nontender Dorsiflexion, plantarflexion, and extensor hallucis longus positive sustained bilaterally No signs or symptoms of DVT; no calf pain; pneumatic cuffs not currently intact bilateral lower extremities Dressing remains intact over the incision sites is currently dry with no significant active drainage Neurovascularly intact bilaterally lower extremities Assessment: L3-4 and L4-5 minimally invasive posterior lateral decompression and fusion with transforaminal lumbar interbody fusion L3-4 and L4-5 degenerative disc disease Lower extremity radiculopathy Lower extremity weakness Low back pain L3-4 and L4-5 spinal canal stenosis with recurrent stenosis at L4-5 Hypertension Plan: 1. Ambulate as tolerated; work with Physical Therapy to increase mobilization 2. Continue pain control with IV and oral medications 3. Dressings to remain intact; patient may continue with daily dressing changes as needed 4. Medical management can continue to manage patient for patient's other medical diagnoses including hypertension 5. We will continue to follow the patient closely; if the patient is able to have better improvement of the symptoms, we'll plan for discharge as early as tomorrow, 08/15/2019 or 08/16/2019 6. Patient can follow-up with Emeka Shipman PA-C or Dr. Garland Andrade at [facility] in 2-3 weeks following discharge <Bassem Andrade - Last Filed: 08/14/19 12:39> Progress Note - Text Patient is seen and examined at bedside with Emeka Sewell as mentioned above. I am in agreement with above dictation. We will continue to follow patient closely regarding his spinal stenosis with status post decompression and fusion L3 4 and L4 5.
[2019-08-14] MEDS ORDERED: IPRATROPIUM-ALBUTEROL 3 ML NEB INHALATION PRN (15:18)
[2019-08-14] MEDS: PIPERACILLIN-TAZOBACTAM 3.375 GM in SODIUM CHLORIDE 0.9% 100 ML IVPB SCH ×2 (16:50→23:04)
--- NOTE | 2019-08-14 17:08 | PN ---
PROGRESS NOTE DATE OF SERVICE: 08/14/2019 This 69-year-old gentleman admitted after lumbar laminectomy, revision laminectomies, also had some atelectasis. No chest pain. No palpitations. No fever. REVIEW OF SYSTEMS: CARDIOVASCULAR SYSTEM: No angina, palpitations. RESPIRATORY SYSTEM: As mentioned earlier. GI: No nausea, vomiting. : No dysuria or retention. NERVOUS SYSTEM: No numbness, weakness. PHYSICAL EXAMINATION: Alert and oriented x3. Pulse is 117, blood pressure 119/74, respiration 18, temperature 99.6, pulse ox 91% on room air. HEENT: Conjunctivae normal. Oral mucosa moist. NECK: No jugular venous distention. No carotid bruit. No lymph node enlargement. CARDIOVASCULAR SYSTEM: S1, S2 muffled. RESPIRATORY SYSTEM: Breath sounds diminished at the bases. A few scattered rhonchi and crackles. ABDOMEN: Soft, non-tender. LEGS: No edema. No swelling. NERVOUS SYSTEM: No focal deficit. EXAMINATION OF THE BACK: Status post surgery. LABS: WBC 12.3, hemoglobin 13.4. Sodium 136. CURRENT MEDICATIONS: Reviewed. They include: 1. [place] 5 mg q.4 p.r.n. 2. DuoNeb q.i.d. and p.r.n. 3. Aspirin 81 mg with supper. 4. Cepacol. 5. Trusopt. 6. Hyzaar 50/12.5 mg. 7. Heparin. 8. Dilaudid. 9. Milk of Magnesia. 10.Zofran. 11.Senokot-S. 12.Flomax. ASSESSMENT: 1. Status post revision laminectomy, L4-5. 2. Postoperative cough and atelectasis. 3. Hyponatremia. 4. Remote history of nicotine dependence. 5. History of hypertension. 6. History of degenerative joint disease. 7. History of prostate disorder. 8. History of glaucoma. 9. History of diverticulitis. 10.History of cervical myelopathy. 11.Obesity with body mass index of 36. 12.Minimal tachycardia/hypoxia postoperatively, possibly atelectasis. 13.Increased white count. RECOMMENDATIONS AND DISCUSSION: In this 69-year-old gentleman who presented with multiple medical issues, at this time I recommend to continue current medications, continue with the monitoring, symptomatic treatment. Otherwise at this time I would recommend initiating bronchodilators. The white count is elevated. I would also recommend a course of antibiotics. See orders for further details. Increase ambulation. DVT prophylaxis. We will follow the patient closely with you. Thank you, Dr. Andrade. ALENA / EDITH: [id number] /
--- NOTE | 2019-08-14 20:18 | P.GSCN ---
History of Present Illness Consult date: 08/14/19 Reason for Consult: Urinary retention Requesting physician: Bassem Andrade History of present illness: The patient is a 69-year-old white male who underwent lumbar spine surgery on 08/12/2019. He has experienced difficulty voiding postoperatively, but states that it is the same as it was preoperatively. He states that his voiding has improved since he was placed on tamsulosin preoperatively. He is a vague historian. He describes his urinary stream is being weak. He reports nocturia 2-3. He denies dysuria and hematuria. He states that Dr. Loving prescribed the tamsulosin and checks his prostate Review of Systems - Genitourinary Denies dysuria, Denies hematuria Past Medical History Past Medical History: Cancer, Eye Disorder, Hypertension, Musculoskeletal Disorder, Osteoarthritis (OA), Prostate Disorder Additional Past Medical History / Comment(s): glaucoma, hx. skin cancer, diverticulitis, CERVICAL MYELOPATHY. History of Any Multi-Drug Resistant Organisms: None Reported Past Surgical History: Back Surgery, Orthopedic Surgery Additional Past Surgical History / Comment(s): left knee meniscus repair, LEFT hand MIDDLE finger knuckle replaced, cervical fusion c3-4,c4-5, c5-6, c6-7, LOWER BACK DISC SX Past Anesthesia/Blood Transfusion Reactions: No Reported Reaction Past Psychological History: No Psychological Hx Reported Smoking Status: Former smoker Past Alcohol Use History: Daily Additional Past Alcohol Use History / Comment(s): quit smoking 1993, smoked for 32 yrs. Past Drug Use History: None Reported - Past Family History Father Family Medical History: Cancer Mother Family Medical History: Myocardial Infarction (MD) Medications and Allergies Home Medications Medication Instructions Recorded Confirmed Type Aspirin 81 mg PO DAILY 03/10/16 08/12/19 History Losartan-Hctz 50-12.5 mg [Hyzaar 1 tab PO DAILY 03/10/16 08/12/19 History 50-12.5] B[place]-3 Fatty Acids/Fish Oil [Fish 1 cap PO DAILY 03/10/16 08/12/19 History Oil 1,000 mg Softgel] Acetaminophen-Codeine 300-30mg 1 tab PO Q12H PRN 08/08/19 08/12/19 History [Tylenol w/codeine #3] Dorzolamide 2% [Trusopt 2%] 1 drops BOTH EYES BID 08/08/19 08/12/19 History Methocarbamol [Robaxin] 1,500 mg PO Q8H PRN 08/08/19 08/12/19 History Multivitamins, Thera [Multivitamin 1 tab PO DAILY 08/08/19 08/12/19 History (formulary)] Naproxen Sodium [Aleve] 220 mg PO Q6H PRN 08/08/19 08/12/19 History Tamsulosin [Flomax] 0.4 mg PO DAILY 08/08/19 08/12/19 History Allergies Allergy/AdvReac Type Severity Reaction Status Date / Time No Known Allergies Allergy Verified 08/12/19 13:13 Surgical - Exam Vital Signs Temp Pulse Resp BP Pulse Ox 97.6 F 97 18 161/92 96 08/12/19 13:17 08/12/19 13:17 08/12/19 13:17 08/12/19 13:17 08/12/19 13:17 - General well developed, well nourished, no distress - Respiratory normal respiratory effort - Abdomen Abdomen: soft, non tender, no guarding, no rigid, no rebound - Genitourinary normal penis with no external lesions, testicles non-tender - Psychiatric oriented to time, oriented to person, oriented to place, speech is normal, memory intact Results - Labs 08/14/19 06:46 08/14/19 06:46 Abnormal Lab Results - Last 24 Hours (Table) 08/14/19 08/14/19 Range/Units 06:46 06:46 WBC 12.3 H (3.8-10.6) k/uL RBC 4.18 L (4.30-5.90) m/uL Neutrophils # 10.0 H (1.3-7.7) k/uL Sodium 136 L (137-145) mmol/L Glucose 102 H (74-99) mg/dL Diabetes panel 08/14/19 Range/Units 06:46 Sodium 136 L (137-145) mmol/L Potassium 3.7 (3.5-5.1) mmol/L Chloride 100 (98-107) mmol/L Carbon Dioxide 27 (22-30) mmol/L BUN 11 (9-20) mg/dL Creatinine 0.79 (0.66-1.25) mg/dL Glucose 102 H (74-99) mg/dL Calcium 8.9 (8.4-10.2) mg/dL Calcium panel 08/14/19 Range/Units 06:46 Calcium 8.9 (8.4-10.2) mg/dL Pituitary panel 08/14/19 Range/Units 06:46 Sodium 136 L (137-145) mmol/L Potassium 3.7 (3.5-5.1) mmol/L Chloride 100 (98-107) mmol/L Carbon Dioxide 27 (22-30) mmol/L BUN 11 (9-20) mg/dL Creatinine 0.79 (0.66-1.25) mg/dL Glucose 102 H (74-99) mg/dL Calcium 8.9 (8.4-10.2) mg/dL Adrenal panel 08/14/19 Range/Units 06:46 Sodium 136 L (137-145) mmol/L Potassium 3.7 (3.5-5.1) mmol/L Chloride 100 (98-107) mmol/L Carbon Dioxide 27 (22-30) mmol/L BUN 11 (9-20) mg/dL Creatinine 0.79 (0.66-1.25) mg/dL Glucose 102 H (74-99) mg/dL Calcium 8.9 (8.4-10.2) mg/dL Assessment and Plan (1) Benign prostatic hyperplasia with incomplete bladder emptying Current Visit: Yes Status: Acute Code(s): N40.1 - BENIGN PROSTATIC HYPERPLASIA WITH LOWER URINARY TRACT SYMP; R39.14 - FEELING OF INCOMPLETE BLADDER EMPTYING SNOMED Code(s): 671918029 Plan: As stated, the patient states that his voiding has improved since he began taking tamsulosin. His voiding is currently comparable to what it was preoperatively. He states that his most recent postvoid residual was approximately 290 mL. He hopes to avoid replacement of the Fitzgerald catheter. It would be my suggestion that the catheter be replaced if future post void residuals exceed 350 mL. He was given my card and advised to follow up as an outpatient once he has sufficiently recovered from his spine surgery. Please notify me if I can be of any further assistance. Time with Patient: Greater than 30
[2019-08-14] MEDS: IPRATROPIUM-ALBUTEROL 3 ML NEB INHALATION SCH (20:21)
[2019-08-14] MEDS ORDERED: MAG HYDROX/AL HYDROX/SIMETH 30 ML CUP PO PRN (21:31)
[2019-08-15] MEDS: HYDROmorphone 1 MG/ML 1 ML SYRINGE IVP PRN ×2 (01:45→19:59)
[2019-08-15] MEDS: ASPIRIN 81 MG PO SCH (08:23)
[2019-08-15] MEDS: TAMSULOSIN 0.4 MG CAP.ER.24H PO SCH (08:23)
[2019-08-15] MEDS: SENNOSIDES-DOCUSATE SODIUM 1 EACH TAB PO SCH (08:23)
[2019-08-15] MEDS: DORZOLAMIDE HCL 2% DROPS 10 ML BTL BOTH EYES SCH ×2 (08:24→20:07)
[2019-08-15] MEDS: HEPARIN SODIUM,PORCINE 5,000 UNIT/ML 1 ML VIAL SQ SCH ×2 (08:24→20:06)
[2019-08-15] MEDS: MULTIVITAMINS, THERA 1 EACH TAB PO SCH (08:24)
[2019-08-15] MEDS: LOSARTAN-HCTZ 50-12.5 MG 1 EACH TAB PO SCH (08:24)
[2019-08-15] MEDS: HYDROcodone/APAP 5-325MG 1 EACH TAB PO PRN ×2 (08:24→17:39)
[2019-08-15] MEDS: PIPERACILLIN-TAZOBACTAM 3.375 GM in SODIUM CHLORIDE 0.9% 100 ML IVPB SCH ×2 (08:37→15:15)
[2019-08-15] MEDS: IPRATROPIUM-ALBUTEROL 3 ML NEB INHALATION SCH ×3 (08:57→19:40)
[2019-08-15] MEDS ORDERED: MAGNESIUM CITRATE 296 ML BOTTLE PO PRN (09:55)
[2019-08-15] MEDS ORDERED: BISACODYL 10 MG SUPP RECTAL PRN (09:55)
--- NOTE | 2019-08-15 10:02 | P.PN ---
Progress Note - Text Progress Note Date: 08/15/19 Postoperative day #3 Patient is seen and examined today at bedside. The patient has some pain around the surgical site as expected but he has been able to get in and out of bed and is moving adequately. Pain is being controlled with medication. He does not feel that he is passing any gas is not yet had a bowel movement. Physical Exam Afebrile with stable vital signs Abdomen is soft nontender. Chest has good excursion deep and space expiration The incision site has some small serous drainage without any purulence. There is no significant bleeding. No erythema there is no purulence. Extremities have not had neurologic change from prior to surgery. He has good strength his bilateral lower extremities Calves and thighs were soft nontender without evidence of DVT. Assessment/Plan Postoperative day #3 status post minimally invasive decompression fusion L3 4 L4 5 for his spinal stenosis with lower extremity radiculopathy Patient is progressing a little bit slowly from the surgery. He is not feeling that he is passing gas and has not yet had a bowel movement. He does not have significant distention but I would like to try to see if we can get his bowels moving further with some Dulcolax today and possibly mag citrate if necessary tomorrow We will continue to increase the patient's mobilization with therapy. We'll have case management see him for discharge planning. He would really like to go straight home from the hospital but I informed him he would need to be a bit stronger with his bowels and has been moving better for that happen. His drainage at his back is certainly slowing down significantly and it is okay for him to shower with waterproof dressing intact. We will continue pain control with oral or IV medications. We'll continue to follow patient closely.
--- NOTE | 2019-08-15 11:34 | CDI ---
Documentation Clarification Form Date: 08/15/2019 11:23:26 AM From: Vandana Nazario CCS, CCDS Admit Date: 08/12/2019 12:25:00 PM Patient Name: Shane Telles Visit Number: [id number] Discharge Date: ATTENTION: The Clinical Documentation Specialists (CDI) and [facility] Coding Staff appreciate your assistance in clarifying documentation. Please respond to the clarification below the line at the bottom and electronically sign. The CDI & [facility] Coding staff will review the response and follow-up if needed. Please note: Queries are made part of the Legal Health Record. If you have any questions, please contact the author of this message via ITS. Dr. Tyler Cotto: Per the 08/14 Medical Management Progress Note: "Has some atelectasis. Breath sounds diminished at bases, few scattered rhonchi & crackles. Assessment: Postop cough & atelectasis. Plan: Initiate INH, WBC elev, rec abx. Inc ambulation." Patients Admitting/Preop Diagnosis 08/12: Spinal stenosis L 3 4 L4 5, recurrent stenosis L4 5, degenerative disc disease L3 4 L4 5, lower extremity radiculopathy, lower extremity weakness. Post-Operative Diagnosis 08/12: Same Procedure performed 08/12: Laminectomy and decompression L3 4. Revision laminectomy decompression L4 5. Minimally invasive posterior lateral decompression and facet. Fusion L3 4 L4 5. Minimally invasive transforaminal lumbar inter-body fusion for a 360 fusion L3 4 L4 5. Discectomy for decompression L3 4 L4 5. History/Risk Factors: DJD, Obesity w/BMI 36, Prostate disease, Hypertension, Glaucoma & previous back surgery. Clinical Indicators: Presented 08/12 for elective revision of laminectomy & lumbar spinal fusion. Postoperatively developed atelectasis as described above in the medical management 08/14 progress note. Treatment: INH Albuterol started 08/14, IV Zosyn, O2: standby In order to accurately reflect this patients severity of illness, please clarify if the post-operative diagnosis is: An expected post-procedural or post-surgical condition An unexpected post-procedural or post-surgical condition related to surgical care (a complication of care) An unexpected post-procedural or post-surgical condition, related to the patients underlying medical comorbidities Other, please specify ____ Unable to determine (Last Revision: October 2018) An expected post-procedural or post-surgical condition MTDD
[2019-08-15] MEDS: SODIUM CHLORIDE 0.9% 1,000 ML IV SCH (15:03)
--- NOTE | 2019-08-16 00:05 | PN ---
PROGRESS NOTE DATE OF SERVICE: 08/15/2019 This 69-year-old gentleman who was admitted with lumbar laminectomy, is being closely monitored. No chest pain. No palpitations. No fever. EXAM: Alert and oriented x3. Pulse is 102. Blood pressure 100/60, respirations 16, temperature 99.4, pulse ox 94% on room air. HEENT: Conjunctivae normal. NECK: No JVD. CARDIOVASCULAR: S1, S2 muffled. RESPIRATORY SYSTEM: Breath sounds diminished at the bases. No rhonchi. No crackles. ABDOMEN: Soft. Nontender. LEGS are no edema. No swelling. CENTRAL NERVOUS SYSTEM: No focal deficits. LABS: WBC 12.3 and sodium is 136. ASSESSMENT: 1. Status post revision laminectomy, L4-5. 2. Postoperative cough and atelectasis as expected. 3. Hyponatremia. 4. Remote history of nicotine dependence. 5. Increased WBC possibly reactive. 6. History of hypertension. 7. History of degenerative joint disease. 8. History of prostate disorder. 9. History of glaucoma. 10.History of diverticulitis. 11.History of cervical myelopathy. 12.Obesity with body mass index 36. 13.Minimal tachycardia and hypoxemia, possibly secondary to atelectasis as expected. 14.Increased WBC. RECOMMENDATIONS AND DISCUSSION: I recommend to continue current medications, monitor and symptomatic treatment. Incentive spirometry. Closely follow with Orthopedic surgery. DVT prophylaxis. Further recommendations to follow. MMODL / IJN: [id number] /
[2019-08-16] MEDS: HYDROmorphone 1 MG/ML 1 ML SYRINGE IVP PRN (02:46)
[2019-08-16] MEDS: PIPERACILLIN-TAZOBACTAM 3.375 GM in SODIUM CHLORIDE 0.9% 100 ML IVPB SCH ×4 (02:46→23:44)
[2019-08-16] MEDS: SODIUM CHLORIDE 0.9% 1,000 ML IV SCH ×2 (06:46→17:12)
[2019-08-16] MEDS: LACTATED RINGERS 1,000 ML IV SCH (06:46)
[2019-08-16] MEDS: HYDROcodone/APAP 5-325MG 1 EACH TAB PO PRN ×2 (08:07→19:59)
[2019-08-16] MEDS: SENNOSIDES-DOCUSATE SODIUM 1 EACH TAB PO SCH (08:08)
[2019-08-16] MEDS: MULTIVITAMINS, THERA 1 EACH TAB PO SCH (08:08)
[2019-08-16] MEDS: LOSARTAN-HCTZ 50-12.5 MG 1 EACH TAB PO SCH (08:08)
[2019-08-16] MEDS: ASPIRIN 81 MG PO SCH (08:08)
[2019-08-16] MEDS: DORZOLAMIDE HCL 2% DROPS 10 ML BTL BOTH EYES SCH ×2 (08:08→20:00)
[2019-08-16] MEDS: HEPARIN SODIUM,PORCINE 5,000 UNIT/ML 1 ML VIAL SQ SCH ×2 (08:08→20:00)
[2019-08-16] MEDS: TAMSULOSIN 0.4 MG CAP.ER.24H PO SCH (08:08)
[2019-08-16] MEDS: IPRATROPIUM-ALBUTEROL 3 ML NEB INHALATION SCH ×3 (08:38→21:45)
--- NOTE | 2019-08-16 13:03 | P.PN ---
Progress Note - Text Progress Note Date: 08/16/19 Orthopedic Spine: History of present illness: Patient is a pleasant 69-year-old male who is seen and examined at the bedside following posterior lateral decompression and fusion performed Monday. Patient states they are doing ok postsurgically. His leg pain is controlled but is experiencing left lower extremity leg pain. He continues to have significant pain at his surgical sites of his lumbar spine does feel it has been some progress over the past 2 days. He is currently lying comfortably in bed. He has been out of bed with physical therapy and has been able to slowly ambulate some of the hallways. He is able to cannulate the restroom. His Fitzgerald catheter was previously discontinued. He continues to have some chronic difficulty with urination but has returned to his baseline. He continues to take Flomax. Patient has not had a bowel movement since his admittance. He just started passing gas yesterday. He has some lower abdominal discomfort without significant pain. He is unsure if this discomfort is due to his lack of bowel movement or from previous difficulty with ambulation prior to surgical intervention. Dulcolax suppository has been ordered to help relieve constipation. Patient is also receiving no of magnesia and Senokot help facilitate a bowel movement. Currently does not complain of nausea, vomiting, fever, or chills. Patient has been able to eat some fluid postoperatively. He feels he has had some improvement of his pain overall as compared to yesterday. He was having significant drainage from his surgical sites yesterday which has to need to improve. He currently has a waterproof dressings intact. Patient will plan to be seen and examined by medicine for medical management during his admission to the hospital. Patient states his pain has been adequately controlled. He would like to try to wean off of IV narcotic pain medications so that he may be discharged home. Physical Exam Lumbar Fusion: Status post surgical day number 4 Patient is awake, alert, and oriented 3 Vital signs stable Good chest excursion with deep inspiration and expiration Abdomen soft nontender; no significant pain with palpation over the 4 quadrants of the abdomen Dorsiflexion, plantarflexion, and extensor hallucis longus positive sustained bilaterally No signs or symptoms of DVT; no calf pain; pneumatic cuffs not currently intact bilateral lower extremities Dressing remains intact over the incision sites is evidence of some mild dried drainage with no significant active drainage Evidence of some mild bruising around the surgical sites Neurovascularly intact bilaterally lower extremities Assessment: L3-4 and L4-5 minimally invasive posterior lateral decompression and fusion with transforaminal lumbar interbody fusion L3-4 and L4-5 degenerative disc disease Lower extremity radiculopathy Lower extremity weakness Low back pain L3-4 and L4-5 spinal canal stenosis with recurrent stenosis at L4-5 Hypertension Postoperative constipation Chronic difficulty with urination; has returned to his baseline postoperatively Plan: 1. Ambulate as tolerated; work with Physical Therapy to increase mobilization 2. Continue pain control with IV and oral medications; we'll continue to wean the patient off of IV narcotic pain medications in anticipation for discharge home as early as tomorrow, 08/17/2019 MAPS has been reviewed today, 08/16/2019, with an Overall Overdose Risk Score of 80. An "Opiod Start Talking" Form has been signed and placed in the patient's chart. A prescription has been written for [place] 7.5 mg #25 mg 1-2 tabs every 6 hours as needed for pain, dispensed #56. A prescription has been been for Senokot-S 1 tab twice a day as needed for constipation, dispensed #60. A prescription has been written for Robaxin 750 mg, take 2 tablets 3 times a day as needed for muscle spasm, dispensed #60. Medications are sent directly to the [facility] pharmacy here at [facility]. 3. Patient has been having difficulty postoperatively with having a bowel movement. He has been able to start passing gas. A Dulcolax suppository has been ordered. Patient is also receiving milk of magnesia, magnesium citrate, and Senokot-S. Patient will continue to receive his medications as prescribed. We discussed the patient should have a bowel movement prior to discharge home. 4. Dressings to remain intact; patient may continue with daily dressing changes as needed; patient may shower waterproof dressings intact 5. Medical management can continue to manage patient for patient's other medical diagnoses including hypertension 6. Patient is been seen and examined by urology and may plan for follow-up evaluation in the outpatient setting for his chronic difficulty with urination 7. We will continue to follow the patient closely; if the patient is able to have better improvement of the symptoms, we'll plan for discharge as early as tomorrow, 08/17/2019 8. Patient can follow-up with Emeka Shipman PA-C or Dr. Garland Andrade at [facility] in 2-3 weeks following discharge
--- NOTE | 2019-08-16 16:49 | PN ---
PROGRESS NOTE DATE OF SERVICE: 08/16/2019 This 69-year-old gentleman admitted after lumbar laminectomy is improving significantly. No chest pain. No palpitations. No fever. PHYSICAL EXAMINATION: Alert and oriented x3. Pulse 100. The blood pressure is 135/72, respiration 16, temperature 98.7, pulse ox 94% on room air. HEENT: Conjunctivae normal. NECK: No jugular venous distention. CARDIOVASCULAR SYSTEM: S1, S2 muffled. RESPIRATORY SYSTEM: Breath sounds diminished at the bases. A few scattered rhonchi. ABDOMEN: Soft, non-tender. LEGS: No edema. No swelling. NERVOUS SYSTEM: No focal deficit. EXAMINATION OF THE BACK: Status post surgery. LABS: WBC 12.3. Sodium is 136. ASSESSMENT: 1. Status post revision laminectomy, L4-5. 2. Postoperative cough and atelectasis, as expected. 3. Hyponatremia. 4. Remote history of nicotine dependence. 5. Increased white count, possibly reactive. 6. History of hypertension. 7. History of degenerative joint disease. 8. History of prostate disorder. 9. History of glaucoma. 10.History of diverticulitis. 11.History of cervical myelopathy. 12.Obesity with body mass index of 36. 13.Minimal tachycardia and hypoxemia, possibly secondary to atelectasis, as expected. RECOMMENDATIONS AND DISCUSSION: I recommend to continue current medications, continue with the monitoring, symptomatic treatment. Otherwise at this time I recommend DVT prophylaxis, bronchodilators. Guarded prognosis because of multiple complex medical issues. Further recommendations to follow. MMODL / IJN: [id number] /
[2019-08-17 01:07] VITALS: RESP 16
[2019-08-17] MEDS: IPRATROPIUM-ALBUTEROL 3 ML NEB INHALATION SCH ×2 (07:26→11:32)
[2019-08-17 07:54] VITALS: BP 132/68; TEMP 98.9
--- NOTE | 2019-08-17 09:43 | P.DS ---
Providers Date of admission: 08/12/19 12:25 Expected date of discharge: 08/17/19 Attending physician: Bassem Andrade Consults: 08/12/19 19:40 Consult Physician Routine Consulting Provider: Tyler Cotto Consult Reason/Comments: Medical management Do you want consulting provider notified?: Yes 08/14/19 15:34 Consult Physician Routine Consulting Provider: Jarred Andrews Consult Reason/Comments: Retention Do you want consulting provider notified?: Yes Primary care physician: Jose C Loving - [place] Diagnosis(es) (1) Degenerative disc disease Current Visit: Yes Status: Acute (2) Radiculopathy with lower extremity symptoms Current Visit: Yes Status: Acute (3) Lower extremity weakness Current Visit: Yes Status: Acute Hospital Course: The patient is a 69-year-old male who is status post a minimally invasive posterior lateral decompression with transforaminal lumbar interbody fusion of L3 to L4 and L4 to L5 on 08/12/[address] Andrade. Patient has known history of low back pain and presented to discuss options. After discussion and consideration, patient elected to proceed with surgery. The patient was seen preoperatively and medically cleared for surgery by his primary care physician. The procedure was performed without complications or sequelae. The patient was seen and evaluated at bedside today and denies any new complaints. Pain is reasonably controlled. Dressing is clean dry and intact. His abdomen is soft and nontender. Dorsiflexion, plantarflexion, extensor hallucis longus positive sustaining bilaterally. Calves are soft and nontender. The patient has full foot and ankle motion without difficulty. Patient's bilateral lower extremities are neurovascular intact. The patient is voiding that his baseline and has had 2 bowel movements in the last 24 hours. Patient is orthopedically stable for discharge to home today. Pertinent Studies: Laboratory Tests 08/14/19 08/14/19 06:46 06:46 WBC 12.3 H RBC 4.18 L Hgb 13.4 Hct 39.2 Neutrophils # 10.0 H Sodium 136 L Glucose 102 H Patient Condition at Discharge: Stable Plan - Discharge Summary Discharge Rx Participant: No New Discharge Prescriptions: New HYDROcodone/APAP 7.5-325MG [[place] 7.5-325] 1 - 2 each PO Q6HR PRN #56 tab PRN Reason: Pain Methocarbamol [Robaxin] 1,500 mg PO TID PRN #60 tab PRN Reason: Muscle Spasm Sennosides-Docusate Sodium [Senokot-S] 1 tab PO BID PRN #60 tablet PRN Reason: Constipation No Action [place]-3 Fatty Acids/Fish Oil [Fish Oil 1,000 mg Softgel] 1 cap PO DAILY Losartan-Hctz 50-12.5 mg [Hyzaar 50-12.5] 1 tab PO DAILY Aspirin 81 mg PO DAILY Multivitamins, Thera [Multivitamin (formulary)] 1 tab PO DAILY Tamsulosin [Flomax] 0.4 mg PO DAILY Dorzolamide 2% [Trusopt 2%] 1 drops BOTH EYES BID Naproxen Sodium [Aleve] 220 mg PO Q6H PRN PRN Reason: Pain Methocarbamol [Robaxin] 1,500 mg PO Q8H PRN PRN Reason: Muscle Spasm Acetaminophen-Codeine 300-30mg [Tylenol w/codeine #3] 1 tab PO Q12H PRN PRN Reason: Pain Discharge Medication List Aspirin 81 mg PO DAILY 03/10/16 [History] Losartan-Hctz 50-12.5 mg [Hyzaar 50-12.5] 1 tab PO DAILY 03/10/16 [History] [place]-3 Fatty Acids/Fish Oil [Fish Oil 1,000 mg Softgel] 1 cap PO DAILY 03/10/16 [History] Acetaminophen-Codeine 300-30mg [Tylenol w/codeine #3] 1 tab PO Q12H PRN 08/08/19 [History] Dorzolamide 2% [Trusopt 2%] 1 drops BOTH EYES BID 08/08/19 [History] Methocarbamol [Robaxin] 1,500 mg PO Q8H PRN 08/08/19 [History] Multivitamins, Thera [Multivitamin (formulary)] 1 tab PO DAILY 08/08/19 [History] Naproxen Sodium [Aleve] 220 mg PO Q6H PRN 08/08/19 [History] Tamsulosin [Flomax] 0.4 mg PO DAILY 08/08/19 [History] HYDROcodone/APAP 7.5-325MG [[place] 7.5-325] 1 - 2 each PO Q6HR PRN #56 tab 08/16/19 [Rx] Methocarbamol [Robaxin] 1,500 mg PO TID PRN #60 tab 08/16/19 [Rx] Sennosides-Docusate Sodium [Senokot-S] 1 tab PO BID PRN #60 tablet 08/16/19 [Rx] Follow up Appointment(s)/Referral(s): Emeka Shipman PAC [PHYSICIAN ELECTRIC [employer]OR REBUILDER] - 08/27/19 3:30 pm (Patient may follow-up with Emeka Shipman PA-C or Dr. Garland Andrade at [facility] in 2-3 weeks following discharge. ) [facility] Visiting Nurse, [NON-STAFF] - As Needed Activity/Diet/Wound Care/Special Instructions: 1. Patient may shower with Tegaderm dressing intact. 2. Patient may remove Tegaderm dressing in 3 days and shower without a dressing at that time. 3. Patient should refrain from driving until at least after their first follow- up appointment in the office. 4. Patient should avoid excessive bending, twisting, and lifting; no lifting greater than 10 pounds 5. Take medications as prescribed 6. Do not soak in tub Discharge Disposition: HOME SELF-CARE
[2019-08-17] MEDS: DORZOLAMIDE HCL 2% DROPS 10 ML BTL BOTH EYES SCH (09:45)
[2019-08-17] MEDS: LOSARTAN-HCTZ 50-12.5 MG 1 EACH TAB PO SCH (09:45)
[2019-08-17] MEDS: PIPERACILLIN-TAZOBACTAM 3.375 GM in SODIUM CHLORIDE 0.9% 100 ML IVPB SCH (09:46)
[2019-08-17] MEDS: MULTIVITAMINS, THERA 1 EACH TAB PO SCH (09:46)
[2019-08-17] MEDS: SENNOSIDES-DOCUSATE SODIUM 1 EACH TAB PO SCH (09:46)
[2019-08-17] MEDS: TAMSULOSIN 0.4 MG CAP.ER.24H PO SCH (09:46)
[2019-08-17] MEDS: ASPIRIN 81 MG PO SCH (09:46)
[2019-08-17] MEDS: HEPARIN SODIUM,PORCINE 5,000 UNIT/ML 1 ML VIAL SQ SCH (09:46)
[2019-08-17] MEDS: HYDROcodone/APAP 5-325MG 1 EACH TAB PO PRN (11:16)
[2019-08-17 12:26] VITALS: PULSE 102
--- NOTE | 2019-08-17 23:34 | PN ---
PROGRESS NOTE DATE OF SERVICE: 08/17/2019 This 69-year-old gentleman admitted after lumbar laminectomy surgery is improving significantly. No chest pain. No palpitations. No fever. EXAM: Alert and oriented x3. Pulse is 102, blood pressure is 130/60, respirations 16, temperature 98.2, pulse ox 94% on room air. HEENT: Conjunctivae normal. Oral mucosa moist. NECK: No jugular venous distention. No lymph node enlargement. CARDIOVASCULAR: S1, S2. RESPIRATORY: Diminished breath sounds at the bases. No rhonchi, no crackles. ABDOMEN: Soft, nontender. LEGS: No edema, no swelling. NERVOUS SYSTEM: No focal deficits. LAB STUDIES: WBC 12.2, hemoglobin 13.4, sodium 136. ASSESSMENT: 1. Status post revision laminectomy, L4-5. 2. Postoperative cough and atelectasis as expected. 3. Hyponatremia. 4. Remote history of nicotine dependence. 5. Increased WBC, possibly reactive. 6. Mild hypertension. 7. History of degenerative joint disease. 8. History of prostate disorder. 9. History of glaucoma. 10.History of diverticulitis. 11.History of cervical myelopathy. 12.History of obesity with body mass index of 36. 13.Minimal tachycardia and hypoxemia, possibly secondary to atelectasis, as expected. RECOMMENDATIONS AND DISCUSSION: In this 69-year-old gentleman who presented with multiple complex medical issues, I recommend to resume home medications, incentive spirometry intensively and follow closely with the primary physician and Orthopedic surgery as recommended. Further recommendations to follow. Follow up with Dr. Loving as recommended. MMODL / IJN: [id number] /
== END 2019-08-17 12:21 | disposition home health service (06) | DRG 454 ==
LOC: 2ORMAIN 12:25 → 4SSUR 20:02
PROVIDERS: ADMIT Orthopaedic Surgery Orthopaedic Surgery of the Spine; ATTEND Orthopaedic Surgery Orthopaedic Surgery of the Spine
PROC: 0ST20ZZ Resection of Lumbar Vertebral Disc, Open Approach (ICD-10-PCS; principal; 2019-08-12 14:15)
PROC: 0SG10AJ Fusion of 2 or more Lumbar Vertebral Joints with Interbody Fusion Device, Posterior Approach, Anterior Column, Open Approach (ICD-10-PCS; principal; 2019-08-12 14:15)
PROC: 01NB0ZZ Release Lumbar Nerve, Open Approach (ICD-10-PCS; principal; 2019-08-12 14:15)
PROC: 0SG1071 Fusion of 2 or more Lumbar Vertebral Joints with Autologous Tissue Substitute, Posterior Approach, Posterior Column, Open Approach (ICD-10-PCS; principal; 2019-08-12 14:15)
DX: M51.16 Intervertebral disc disorders with radiculopathy, lumbar region (principal); E87.1 Hypo-osmolality and hyponatremia; J98.11 Atelectasis; M41.86 Other forms of scoliosis, lumbar region; M48.061 Spinal stenosis, lumbar region without neurogenic claudication; M19.90 Unspecified osteoarthritis, unspecified site; I10 Essential (primary) hypertension; H40.9 Unspecified glaucoma; Z79.82 Long term (current) use of aspirin; E66.9 Obesity, unspecified; R09.02 Hypoxemia; R33.9 Retention of urine, unspecified; N40.1 Benign prostatic hyperplasia with lower urinary tract symptoms; M47.816 Spondylosis without myelopathy or radiculopathy, lumbar region; R00.0 Tachycardia, unspecified; M62.838 Other muscle spasm; K59.00 Constipation, unspecified; Z98.890 Other specified postprocedural states; Z79.899 Other long term (current) drug therapy; Z80.9 Family history of malignant neoplasm, unspecified; Z87.891 Personal history of nicotine dependence; Z87.19 Personal history of other diseases of the digestive system; Z68.36 Body mass index [BMI] 36.0-36.9, adult; Z85.828 Personal history of other malignant neoplasm of skin; Z98.1 Arthrodesis status; Z87.39 Personal history of other diseases of the musculoskeletal system and connective tissue; Z82.49 Family history of ischemic heart disease and other diseases of the circulatory system
CPT/HCPCS: 36415; 71045; 72100; 80048; 85025; 86850; 86891; 86900; 86901; 94640; 94760

== ENCOUNTER → 2022-01-25 | Outpatient (CLI) | payer MEDICARE ==
--- NOTE | 2022-01-26 02:26 | MR ---
EXAMINATION TYPE: MR brain/orbits wo/w con DATE OF EXAM: 01/25/2022 COMPARISON: None HISTORY: Acute diplopia, checking for stroke CONTRAST: Standard multiplanar, multisequence MRI departmental protocol images were obtained without contrast a nd with 11.5 mL intravenous Gadavist gadolinium contrast. On the T2 and FLAIR images there is extensive patchy increased signal in the periventricular white ma tter. Areas measure up to 1 cm in thickness. These are coalescent. There are smaller peripheral lesio ns measuring up to 7 mm. Total numbers more than 30. There is cerebral cortical atrophy. There is no mass effect or midline shift. There is thinning of the corpus callosum. Brainstem is intact. Diffusio n images show no evidence of an acute infarct. The sella turcica is normal. Optic chiasm appears norm al. No evidence of orbital mass. The globes are symmetric. There is no retro-orbital abnormality. The contrast images show no pathologic enhancement. There is normal enhancement of the venous sinuses . IMPRESSION: Cerebral atrophy. Extensive white matter changes that could be microvascular ischemia or demyelinatin g disease. No acute infarct. No evidence of orbital abnormality.
== END | disposition home or self-care (01) ==
LOC: RADMRIMAIN 15:15
PROVIDERS: ATTEND Ophthalmology
DX: H53.2 Diplopia (principal)
CPT/HCPCS: 70543; 70553; A9585

== ENCOUNTER 2023-06-09 05:50 | Day surgery (SDC) | payer MEDICARE ==
[~2023-06-09 05:50] MED LIST changes: +ACETAMINOPHEN TAB 500 MG TAB PO PRN; -BACITRACIN 50,000 UNIT, POLYMYXIN B 500,000 UNIT in SODIUM CHLORIDE 0.9% IRRIGATIO 1,00... IRRIGATION ONE; -DEXAMETHASONE SOD PHOSPHATE 10 MG/ML 1 ML VIAL IV ONE; +HEPARIN SODIUM,PORCINE/PF 5,000 UNIT/0.5 ML SYRINGE SQ PRN; -HYDROmorphone 0.5 MG/0.5 ML SYRINGE IVP PRN; -MIDAZOLAM 2 MG/2 ML VIAL IV PRN; -ONDANSETRON 4 MG/2 ML VIAL IVP ONE; -SODIUM CHLORIDE 0.9% IRRIGATIO 1,000 ML IRRIGATION ONE; +metroNIDAZOLE-NS PMX 500 MG in SALINE 1 100ML.BAG IVPB PRN
[2023-06-09] MEDS ORDERED: LACTATED RINGERS 1,000 ML IV SCH (06:27)
[2023-06-09] MEDS ORDERED: DEXAMETHASONE SOD PHOSPHATE 4 MG/ML 1 ML VIAL IV ONE (06:27)
[2023-06-09] MEDS ORDERED: ONDANSETRON 4 MG/2 ML VIAL IVP ONE (06:27)
[2023-06-09] MEDS ORDERED: MIDAZOLAM 2 MG/2 ML VIAL IV PRN (07:00)
[2023-06-09] MEDS ORDERED: HYDROmorphone 0.5 MG/0.5 ML SYRINGE IVP PRN (07:00)
[2023-06-09] MEDS ORDERED: PHENYLEPHRINE-0.9% NACL SYG 1,000 MCG/10 ML SYRINGE ONE (07:28)
[2023-06-09] MEDS ORDERED: NEOSTIGMINE 1 MG/ML 10 ML VIAL ONE (07:28)
[2023-06-09] MEDS ORDERED: HYDROmorphone (PF) 1 MG/ML ONE (07:28)
[2023-06-09] MEDS ORDERED: SUCCINYLCHOLINE CHLORIDE 200 MG/10 ML VIAL IV ONE (07:28)
[2023-06-09] MEDS ORDERED: PROPOFOL 10 MG/ML 20 ML VIAL IV ONE (07:28)
[2023-06-09] MEDS ORDERED: ROCURONIUM 10 MG/ML (5 ML VIAL) IV ONE (07:28)
[2023-06-09] MEDS ORDERED: KETOROLAC 15 MG/ML 1 ML VIAL ONE (07:28)
[2023-06-09] MEDS ORDERED: MIDAZOLAM 2 MG/2 ML VIAL ONE (07:28)
[2023-06-09] MEDS ORDERED: GLYCOPYRROLATE 0.2 MG/ML 2 ML VIAL ONE (07:28)
[2023-06-09] MEDS ORDERED: fentaNYL (PF) 50 MCG/ML 2 ML AMP ONE (07:28)
[2023-06-09] MEDS ORDERED: LIDOCAINE 1% INJ 10MG/ML (20 ML MDV) ONE (07:28)
--- NOTE | 2023-06-09 07:40 | P.GSHP ---
History of Present Illness H&P Date: 06/09/23 Chief Complaint: Colon polyp 73-year-old male underwent recent colonoscopy showing a adenomatous polyp at the cecum adjacent to the appendiceal orifice. Patient without pain. No fevers. He and I discussed the pathology findings and decided to proceed with laparoscopic appendectomy given the concern that the polyp is originating within the appendiceal lumen. Past Medical History Past Medical History: Cancer, Hyperlipidemia, Hypertension, Musculoskeletal Disorder, Osteoarthritis (OA) Additional Past Medical History / Comment(s): hx. 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 Bladder spasms History of Any Multi-Drug Resistant Organisms: None Reported Past Surgical History: Back Surgery, Orthopedic Surgery Additional Past Surgical History / Comment(s): left knee surg., LEFT hand MIDDLE surg. cervical fusion c3-4,c4-5, c5-6, c6-7, LOWER BACK DISC SX Past Anesthesia/Blood Transfusion Reactions: No Reported Reaction Smoking Status: Former smoker - Past Family History Father Family Medical History: Cancer Mother Family Medical History: Myocardial Infarction (PR) Medications and Allergies Home Medications Medication Instructions Recorded Confirmed Type Aspirin 81 mg PO DAILY 03/10/16 06/09/23 History [place]-3 Fatty Acids/Fish Oil [Fish 1 cap PO DAILY 03/10/16 06/09/23 History Oil 1,000 mg Softgel] Dorzolamide 2% [Trusopt 2%] 1 drops BOTH EYES BID 08/08/19 06/09/23 History Multivitamins, Thera [Multivitamin 1 tab PO DAILY 08/08/19 06/09/23 History (formulary)] Tamsulosin [Flomax] 0.4 mg PO DAILY 08/08/19 06/09/23 History methocarbamoL [Robaxin-750] 1,500 mg PO Q8H PRN 08/08/19 06/09/23 History HYDROcodone/APAP 7.5-325MG [[place] 1 - 2 each PO Q6HR PRN #56 tab 08/16/1902/22 Rx 7.5-325] Atorvastatin Calcium [Lipitor] 80 mg PO DAILY 06/07/23 06/09/23 History Losartan Potassium 25 mg PO DAILY 06/07/23 06/09/23 History Unk Butalbital/Tylenol/Caffien 1 tab PO DIRECTED PRN 06/07/23 06/09/23 History Unk Immune Supplement 1 tab PO DAILY 06/07/23 06/09/23 History Unk Neuriva 1 tab PO DAILY 06/07/23 06/09/23 History oxyBUTYnin chloride 5 mg PO DAILY 06/07/23 06/09/23 History Allergies Allergy/AdvReac Type Severity Reaction Status Date / Time No Known Allergies Allergy Verified 06/09/23 06:37 Surgical - Exam Vital Signs Temp Pulse Resp BP Pulse Ox 98.3 F 82 14 130/80 98 06/09/23 06:35 06/09/23 06:35 06/09/23 06:35 06/09/23 06:35 06/09/23 06:35 Physical exam: General: Well-developed, well-nourished HEENT: Normocephalic, sclerae nonicteric Abdomen: Nontender, nondistended Extremities: No edema Neuro: Alert and oriented Assessment and Plan (1) Colon polyp Narrative/Plan: Will proceed with laparoscopic, possible open appendectomy at this time. Risks of bleeding, infection, scarring, leak, abscess, stricture reviewed. Patient understands and wishes to proceed. Current Visit: Yes Status: Acute Code(s): K63.5 - POLYP OF COLON SNOMED Code(s): 84045934
[2023-06-09] MEDS ORDERED: BUPIVACAINE (PF) 0.25% 30 ML VIAL SQ ONE (08:22)
[2023-06-09] MEDS ORDERED: NALOXONE 0.4 MG/ML 1 ML VIAL IV PRN (08:32)
[2023-06-09] MEDS ORDERED: HYDROcodone/APAP 5-325MG 1 EACH TAB PO PRN (08:32)
--- NOTE | 2023-06-09 08:35 | P.OP ---
Date of Procedure: 06/09/23 Procedure(s) Performed: PREOPERATIVE DIAGNOSIS: Cecal polyp POSTOPERATIVE DIAGNOSIS: Same PROCEDURE: Laparoscopic appendectomy SURGEON: Sudhir EBL: 5 mL ANESTHESIA: General COMPLICATIONS: None OPERATIVE PROCEDURE: The patient was brought and placed on the operating table in the supine position. The patient was placed under general anesthesia. The abdomen was prepped and draped in the usual sterile fashion. A small vertical infraumbilical incision was made. The fascia was retracted anteriorly with Cok er forceps. The Veress needle was advanced into the peritoneal cavity. The saline drop test was normal. Insufflation took place to 15 mmHg. A 5 mm trocar was then placed. An additional 5 mm suprapubic trocar was placed under direct visualization as well as a 12 mm left lower quadrant trocar under direct visualization. The appendix was inspected. It was was normal in appearance. The mesoappendix was dissected. The base of the cecum was divided using a linear 45 mm intestinal stapler. The mesentery itself was divided using LigaSure. The area was then irrigated. No further purulence or bleeding was seen. The appendix was brought out of the peritoneal cavity through the left lower quadrant trocar site within the trocar. The fascia at the 12 mm site was closed using a To-Kandi 0 Vicryl stitch. The skin at all 3 sites was closed using 4-0 Monocryl sutures. Skin glue was then applied. DISPOSITION: Stable to recovery room
[2023-06-09 08:57] VITALS: TEMP 97.1
[2023-06-09 09:23] VITALS: RESP 18
[2023-06-09] MEDS ORDERED: LACTATED RINGERS 1,000 ML IV ONE (09:59)
[2023-06-09] MEDS ORDERED: TAMSULOSIN 0.4 MG CAP.ER.24H PO ONE (10:11)
[2023-06-09 10:36] VITALS: BP 133/91; PULSE 94
== END 2023-06-09 10:59 | disposition home or self-care (01) ==
LOC: OR 05:50
PROVIDERS: ATTEND Surgery
DX: K63.5 Polyp of colon (principal); I10 Essential (primary) hypertension; E78.5 Hyperlipidemia, unspecified; M19.90 Unspecified osteoarthritis, unspecified site; Z98.890 Other specified postprocedural states; Z87.891 Personal history of nicotine dependence; Z82.49 Family history of ischemic heart disease and other diseases of the circulatory system; Z79.82 Long term (current) use of aspirin; Z79.899 Other long term (current) drug therapy
CPT/HCPCS: 44970; J2250; J0330; J1100; J2710; J0690; J2405; J2001; J3010; J1170; J1885; J2704; J1644; J2371; J0665; 88304

== ENCOUNTER 2024-08-30 08:48 | Day surgery (SDC) | payer MEDICARE ==
--- NOTE | 2024-08-30 09:12 | P.HPADDEND ---
H&P Addendum H&P Addendum Date: 08/30/24 Patient's CAT scan was reviewed after his recent visit. It does appear that this was an incarcerated piece of fat that likely became ischemic. That likely explains the firmness to the nodule at the base of the umbilicus. Will proceed with open repair with mesh at this time. Obviously the nodule be excised and sent to pathology to eliminate the concern for any neoplastic process. Risks of bleeding, infection, recurrence, chronic pain, bladder and bowel injury, numbness, conversion to an open procedure, scarring, and anesthesia related complications were discussed. The correlation between hernia recurrence, obesity and smoking were reviewed in detail. The patient understands and wishes to proceed.
[2024-08-30] MEDS: ACETAMINOPHEN TAB 500 MG TAB PO PRN (09:43)
[2024-08-30] MEDS: DEXAMETHASONE SOD PHOSPHATE 4 MG/ML 1 ML VIAL IV ONE (09:50)
[2024-08-30] MEDS: ONDANSETRON 4 MG/2 ML VIAL IVP ONE (09:50)
[2024-08-30] MEDS: LACTATED RINGERS 1,000 ML IV SCH (09:51)
[2024-08-30] MEDS: MIDAZOLAM 2 MG/2 ML VIAL IV PRN (10:00)
[2024-08-30] MEDS: IV FLUID CONTINUATION 1,000 ML IV ONE ×2 (10:01→14:55)
[2024-08-30] MEDS: fentaNYL (PF) 50 MCG/ML 2 ML AMP IVP PRN (10:05)
[2024-08-30] MEDS: HEPARIN SODIUM,PORCINE 5,000 UNIT/ML 1 ML VIAL SQ PRN (10:09)
[2024-08-30] MEDS ORDERED: ePHEDrine 50 MG/ML 1 ML VIAL ONE (10:21)
[2024-08-30] MEDS ORDERED: SUCCINYLCHOLINE CHLORIDE 200 MG/10 ML VIAL IV ONE (10:21)
[2024-08-30] MEDS ORDERED: PHENYLEPHRINE-0.9% NACL SYG 1,000 MCG/10 ML SYRINGE ONE (10:21)
[2024-08-30] MEDS ORDERED: GLYCOPYRROLATE 0.2 MG/ML 2 ML VIAL ONE (10:21)
[2024-08-30] MEDS ORDERED: ROCURONIUM 10 MG/ML (5 ML VIAL) IV ONE (10:21)
[2024-08-30] MEDS ORDERED: LIDOCAINE 1% INJ 10MG/ML (20 ML MDV) ONE (10:21)
[2024-08-30] MEDS ORDERED: NEOSTIGMINE 1 MG/ML 10 ML VIAL ONE (10:21)
[2024-08-30] MEDS ORDERED: PROPOFOL 10 MG/ML 20 ML VIAL IV ONE (10:21)
[2024-08-30] MEDS ORDERED: fentaNYL (PF) 50 MCG/ML 2 ML AMP ONE (10:21)
[2024-08-30] MEDS ORDERED: ROPIVACAINE 5 MG/ML 30 ML VIAL ONE (10:21)
[2024-08-30] MEDS ORDERED: DEXAMETHASONE SOD PHOSPHATE 4 MG/ML 1 ML VIAL ONE (10:21)
[2024-08-30] MEDS: BUPIVACAINE (PF) 0.25% 30 ML VIAL SQ ONE ×2 (10:24)
[2024-08-30 11:31] VITALS: TEMP 97
--- NOTE | 2024-08-30 11:32 | P.OP ---
Date of Procedure: 08/30/24 Procedure(s) Performed: PREOPERATIVE DIAGNOSIS: Incarcerated umbilical hernia POSTOPERATIVE DIAGNOSIS: Same PROCEDURE: Open repair incarcerated umbilical hernia with umbillectomy SURGEON: Dr. Peguero ANESTHESIA: General EBL: 10 cc OPERATIVE PROCEDURE DETAILS: The patient was placed in the operating table in t he supine position. The patient's umbilical hernia was quite indurated and densely adherent to the overlying umbilical skin. For that reason we decided to excise the umbilicus. An elliptical incision was made horizontally around the umbilical region. The subcutaneous layers were divided using cautery. Once we reached the fascia the umbilicus was excised from that area. Fat that was indurated was seen entering into the hernia sac. Specimen was sent to pathology. Size of the fascial defect measured 1.5 x 1 cm. The fat overlying the fascia was dissected. No additional defects were seen. The preperitoneal space was then dissected using blunt dissection and electrocautery. The 4.3 cm ventral ex mesh was placed beneath the fascia and sutured in place using trans- fascial 0 Ethibond sutures. The defect was closed using interrupted vest over pants 0 Ethibond mattress sutures. The subcutaneous tissues were reapproximated using inverted 2-0 & 3-0 Vicryl sutures. The skin was closed using 4-0 Monocryl sutures. Skin glue and sterile dressings were then applied. HERNIA CHARACTERISTICS: Length: 1 cm Width: 1.5 cm Type: Incarcerated umbilical TYPE OF MESH USED: 4.3 cm Ventralex LOCATION OF MESH: Sublay extraperitoneal FIXATION: 0 Ethibond PREOPERATIVE DISCUSSION ON SMOKING CESSASTION: Yes PREOPERATIVE DISCUSSION ON MORBID OBESITY: Yes PREOPERATIVE DISCUSSION ON APPROPRIATE USE OF NARCOTIC USE: Yes PREOPERATIVE EDUCATION: Multi Modal, Smoking Cessation and Weight Loss with BMI over 35. DISPOSITION: Stable to recovery room
[2024-08-30] MEDS ORDERED: ACETAMINOPHEN TAB 325 MG TAB PO SCH (12:00)
[2024-08-30] MEDS: HYDROmorphone 0.5 MG/0.5 ML SYRINGE IVP PRN (12:01)
--- NOTE | 2024-08-30 12:30 | P.ANPRN ---
Procedure Note - Anesthesia - Nerve Block Performed Bilateral Erector Spinae Single Time Out Performed: Yes Date of Procedure: 08/30/24 Procedure Start Time: 09:59 Procedure Stop Time: 10:04 Location of Patient: PreOp Indication: Acute Post-Operative Pain, Analgesia, Requested by Surgeon Sedation Type: Sedate with meaningful contact maintained Preparation: Sterile Prep Position: Prone Catheter: None Needle Types: Pajunk Needle Gauge: 21 Ultrasound used to visualize needle placement: Yes Ultrasound used to observe medication spread: Yes Injectate: 0.5% Ropivacaine (see comment for volume) (Ropiv 20ml+[id number], Needle level T10 level---Each side.) Blood Aspirated: No Pain Paresthesia on Injection Noted: No Resistance on Injection: Normal Image Stored and Saved: Yes Events: Uneventful and Well Tolerated
[2024-08-30 13:50] VITALS: RESP 16
[2024-08-30] MEDS: TAMSULOSIN 0.4 MG CAP.ER.24H PO STA (13:57)
[2024-08-30] MEDS ORDERED: IBUPROFEN 600 MG TAB PO SCH (14:30)
[2024-08-30 15:09] VITALS: BP 128/85; PULSE 89
== END 2024-08-30 16:55 | disposition home or self-care (01) ==
LOC: OR 08:48
PROVIDERS: ATTEND Surgery
DX: K42.0 Umbilical hernia with obstruction, without gangrene (principal); G89.18 Other acute postprocedural pain; I11.9 Hypertensive heart disease without heart failure; E78.5 Hyperlipidemia, unspecified; I34.0 Nonrheumatic mitral (valve) insufficiency; N40.0 Benign prostatic hyperplasia without lower urinary tract symptoms; E87.6 Hypokalemia; K21.9 Gastro-esophageal reflux disease without esophagitis; G43.909 Migraine, unspecified, not intractable, without status migrainosus; F51.01 Primary insomnia; Z79.899 Other long term (current) drug therapy; Z86.73 Personal history of transient ischemic attack (TIA), and cerebral infarction without residual deficits
CPT/HCPCS: 49592; 64468; 88302; C1781; J2250; J0330; J1644; J1100; J2710; J0690; J2405; J2003; J3010; J2795; J2704; J1171; J2371; J0665; J1596; 64999

== ENCOUNTER 2024-11-05 07:49 | Emergency (ER) | payer MEDICARE ==
[2024-11-05 07:54] VITALS: TEMP 97.9
--- NOTE | 2024-11-05 08:15 | ED ---
General Adult HPI - General Chief complaint: Skin/Abscess/Foreign Body Stated complaint: bite/rash Time Seen by Provider: 11/05/24 07:51 Source: patient Mode of arrival: ambulatory Limitations: no limitations - History of Present Illness Initial comments: Dictation was produced using [employer] dictation software. please excuse any grammatical, word or spelling errors. Chief Complaint: 74-year-old male with history of dyslipidemia hypertension presents to the emergency department facial rash History of Present Illness: Patient 74-year-old male presents to the emergency department facial rash. Patient has had redness and slight paresthesias to the forehead area. Symptoms have been ongoing for the last 2 to 3 days. States that the rash looks like some bullous areas localized to the right forehead. Family just had a tragic loss. Patient has been very upset recently. Denies any fever, chills or night sweats. No vision loss. Denies any history of immunosuppressant medication use. No history of transplant. The ROS documented in this emergency department record has been reviewed and confirmed by me. Those systems with pertinent positive or negative responses have been documented in the HPI. All other systems are other negative and/or noncontributory. - Related Data Home Medications Medication Instructions Recorded Confirmed Tamsulosin [Flomax] 0.4 mg PO HS 08/08/19 08/30/24 Atorvastatin Calcium [Lipitor] 80 mg PO DAILY 06/07/23 08/30/24 oxyBUTYnin chloride 5 mg PO DAILY 06/07/23 08/30/24 Butalb/APAP/Caff 50-325-40Mg 1 tab PO BID PRN 08/06/24 08/30/24 [Fioricet 50-325-40] Dorzolamide-Timol 2.23%/0.68% 1 drop BOTH EYES BID 08/06/24 08/30/24 [Cosopt] Losartan-Hctz 50-12.5 mg [Hyzaar 1 tab PO DAILY 08/06/24 08/30/24 50-12.5] tiZANidine [Zanaflex] 4 mg PO BID 08/06/24 08/30/24 Cetirizine HCl [Zyrtec] 10 mg PO DAILY 08/27/24 08/30/24 Previous Rx's Medication Instructions Recorded oxyCODONE HCL [OxyIR] 5 mg PO Q6H PRN 3 Days #6 tab 08/30/24 predniSONE [Deltasone] 60 mg PO DAILY 7 Days #21 tab 11/05/24 valACYclovir HCL [Valtrex] 1,000 mg PO Q8H 10 Days #30 tablet 11/05/24 Allergies Allergy/AdvReac Type Severity Reaction Status Date / Time No Known Allergies Allergy Verified 11/05/24 07:54 Review of Systems ROS Statement: Those systems with pertinent positive or pertinent negative responses have been documented in the HPI. ROS Other: All systems not noted in ROS Statement are negative. Past Medical History Past Medical History: Cancer, Hyperlipidemia, Hypertension, Musculoskeletal Disorder, Osteoarthritis (OA) Additional Past Medical History / Comment(s): hx. 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 Bladder spasms umbilical hernia History of Any Multi-Drug Resistant Organisms: None Reported Past Surgical History: Appendectomy, Back Surgery, Orthopedic Surgery Additional Past Surgical History / Comment(s): left knee surg., LEFT hand MIDDLE surg. cervical fusion c3-4,c4-5, c5-6, c6-7, LOWER BACK DISC SX Past Anesthesia/Blood Transfusion Reactions: No Reported Reaction Past Psychological History: No Psychological Hx Reported Smoking Status: Former smoker - Past Family History Father Family Medical History: Cancer Mother Family Medical History: Myocardial Infarction ([place]) General Exam - General Exam Comments Initial Comments: General: Well-appearing, nontoxic, no acute distress. Head: Normocephalic, atraumatic Face: Slightly bullous erythematous rash into the demarcated line down the middle of the forehead. Rash encompasses on the right forehead. Eyes: PERRLA, EOMI, no conjunctivitis ENT: Airway patent Chest: Nonlabored breathing Skin: No visual rash, normal skin tone Neuro: Alert and oriented 3 Musculoskeletal: No gross abnormalities Limitations: no limitations Course Vital Signs 11/05/24 07:50 Temperature 97.9 F Pulse Rate 103 H Respiratory 16 Rate Blood Pressure 156/100 O2 Sat by Pulse 94 L Oximetry Medical Decision Making - Medical Decision Making Was pt. sent in by a medical professional or institution (, PA, COMMANDING OFFICER GARAGE, urgent care, hospital, or [facility]...) When possible be specific @ -No Did you speak to anyone other than the patient for history (EMS, parent, family, police, friend...)? What history was obtained from this source @ -No Did you review nursing and triage notes (agree or disagree)? Why? @ -I reviewed and agree with nursing and triage notes Were old charts reviewed (outside hosp., previous admission, EMS record, old EKG, old radiological studies, urgent care reports/EKG's, [facility] records)? Report findings @ -No old charts were reviewed Differential Diagnosis (chest pain, altered mental status, abdominal pain women, abdominal pain men, vaginal bleeding, musculoskeletal, weakness, fever, dyspnea, syncope, headache, dizziness, GI bleed, back pain, seizure, CVA, pa lpatations, mental health)? @ -Herpes zoster otic us, herpes zoster ophthalmicus, cellulitis EKG interpreted by me (3pts min.). @ -None done X-rays interpreted by me (1pt min.). @ -None done CT interpreted by me (1pt min.). @ -None done U/S interpreted by me (1pt. min.). @ -None done What testing was considered but not performed or refused? (CT, X-rays, U/S, labs)? Why? @ -None What meds were considered but not given or refused? Why? @ -None Was smoking cessation discussed for >3mins.? @ -No Were there social determinants of health that impacted care today? How? (Homelessness, low income, unemployed, alcoholism, drug addiction, transportation, low edu. Level, literacy, decrease access to med. care, shelter, rehab)? @ -No Was there de-escalation of care discussed even if they declined (Discuss DNR or withdrawal of care, Hospice)? DNR status @ -No What co-morbidities impacted this encounter? (DM, HTN, Smoking, COPD, CAD, Cancer, CVA, ARF, Chemo, Hep., AIDS, mental health diagnosis, sleep apnea, morbid obesity)? @ -None Was patient admitted / discharged? Hospital course, mention meds given and route, prescriptions, significant lab abnormalities, going to OR and other pertinent info. @ -74-year-old male with no history of immune compromise presents emergency department the rash consistent with herpes zoster ophthalmicus. Patient well- appearing. Vital signs are stable. Patient given prescription for antivirals. Rash does not appear to involve the tip of the nose. Fluorescein testing of the eye showed no dendritic lesions. Case discussed with Dr. Beard who did not feel patient would benefit from any ophthalmic steroids. Nonetheless patient given outpatient referral to ophthalmology. Did you discuss the management of the patient with other professionals (claudette miranda i.e. , PA, COMMANDING OFFICER GARAGE, lab, RT, psych nurse, licensed master social worker, hardscape foreman, teacher, delinquency prevention officer, case coordinator)? Give summary @ -See above Was critical care preformed (if so, how long)? @ -No Undiagnosed new problem with uncertain prognosis? @ -No Drug Therapy requiring intensive monitoring for toxicity (Heparin, Nitro, Insulin, Cardizem)? @ -No Were any procedures done? @ -No Diagnosis/symptom? Acute, or Chronic, or Acute on Chronic? Uncomplicated (without systemic symptoms) or Complicated (systemic symptoms)? @ -Herpes zoster Side effects of treatment? @ -No Exacerbation, Progression, or Severe Exacerbation? @ -No Poses a threat to life or bodily function? How? (Chest pain, [place], [place], pneumonia, PE, COPD, DKA, ARF, appy, cholecystitis, CVA, Diverticulitis, Homicidal, Suicidal, threat to staff... and all critical care pts) @ -yes Disposition Clinical Impression: Herpes zoster ophthalmicus Disposition: HOME SELF-CARE Condition: Fair Instructions (If sedation given, give patient instructions): Shingles (ED) Prescriptions: predniSONE [Deltasone] 60 mg PO DAILY 7 Days #21 tab valACYclovir HCL [Valtrex] 1,000 mg PO Q8H 10 Days #30 tablet Is patient prescribed a controlled substance at d/c from ED?: No Referrals: Sergio Ness MD [Primary Care Provider] - 1-2 days Kathleen Beard MD [STAFF PHYSICIAN] - 1-2 days Time of Disposition: 08:14
[2024-11-05] MEDS: FLUORESCEIN STRIPS 1 MG STRIP BOTH EYES ONE (08:40)
[2024-11-05 08:47] VITALS: BP 148/90; PULSE 97; RESP 18
== END 2024-11-05 08:50 | disposition home or self-care (01) ==
LOC: EC 07:49
DX: B02.30 Zoster ocular disease, unspecified (principal); Z87.891 Personal history of nicotine dependence
CPT/HCPCS: 99282

== ENCOUNTER 2024-11-14 18:33 | Emergency (ER) | payer MEDICARE ==
[2024-11-14 19:18] LABS: Basophils # (A) 0.03 10*3/uL (0.00-0.10); Basophils % (A) 0.3 %; Eosinophils # (A) 0.15 10*3/uL (0.04-0.35); Eosinophils % (A) 1.6 %; HCT 45.4 % (39.6-50.0); HGB 15.6 g/dL (13.0-17.0); Lymphocytes # (A) 1.51 10*3/uL (0.90-5.00); Lymphocytes % (A) 16.4 %; MCH 31.5 pg (27.0-32.0); MCHC 34.4 g/dL (32.0-37.0); MCV 91.7 fL (80.0-97.0); Mean Platelet Volume 10.5 fL (9.5-12.2); Monocytes # (A) 0.67 10*3/uL (0.20-1.00); Monocytes % (A) 7.3 %; Neutrophils # (A) 6.79 10*3/uL (1.80-7.70); Platelet Count 194 10*3/uL (140-440); RBC 4.95 10*6/uL (4.40-5.60); RDW 13.6 % (11.5-14.5); WBC 9.19 10*3/uL (4.50-10.00)
[2024-11-14 19:43] LABS: INR 1.2 (<1.2)
--- NOTE | 2024-11-14 20:11 | XR ---
EXAMINATION TYPE: XR chest 2V DATE OF EXAM: 11/14/2024 8:06 PM COMPARISON: Chest radiographs from 08/13/2019 TECHNIQUE: XR chest 2V Frontal and lateral views of the chest. CLINICAL INDICATION:Male, 74 years old with history of dizziness weakness; FINDINGS: Lungs/Pleura: There is no evidence of pleural effusion, focal consolidation, or pneumothorax. Pulmonary vascularity: Unremarkable. Heart/mediastinum: Cardiomediastinal silhouette is enlarged and stable. Atherosclerotic calcificatio ns are seen in the aorta. Musculoskeletal: Multiple level degenerative disc disease changes seen throughout the spine. Cervical fusion hardware demonstrated. IMPRESSION: Chronic changes without acute pulmonary process. [facility], , 11/14/2024 8:08 PM
[2024-11-14 20:23] LABS: ALT 24 U/L (4-49); AST 26 U/L (17-59); African American GFR (CKD) >90 (>60 ml/min/1.73 sqM); Albumin 3.6 g/dL (3.5-5.0); Alkaline Phosphatase 59 U/L (38-126); Anion Gap 8 mmol/L; Blood Urea Nitrogen 15 mg/dL (9-20); Calcium 8.6 mg/dL (8.4-10.2); Carbon Dioxide 22 mmol/L (22-30); Chloride 103 mmol/L (98-107); Glucose 109 mg/dL (74-99); Non-African American GFR(CKD) 86 (>60 ml/min/1.73 sqM); Sodium 133 mmol/L (137-145); Total Bilirubin 0.8 mg/dL (0.2-1.3); Total Protein 6.5 g/dL (6.3-8.2)
--- NOTE | 2024-11-14 20:49 | ED ---
General Adult HPI - General Chief complaint: Neuro Symptoms/Deficit Stated complaint: neuro symptoms Time Seen by Provider: 11/14/24 19:56 Source: patient, family Mode of arrival: ambulatory Limitations: no limitations - History of Present Illness Initial comments: Patient is a 74-year-old gentleman past medical history of hypertension presenting today for vision changes. Patient states that he was sitting at the [facility] office with his son when he felt like his vision was going trejo, "as if the room was getting dark". His son noticed him to lean forward like he was going to fall asleep and walked him to the car. Patient had to lean heavily on his son to get to the car. Patient states that on arrival to the hospital his symptoms have since resolved. He did state that he had noted some tunnel vision in his right eye momentarily that has since resolved as well. He currently is asymptomatic. He states his on October 23 and since then he has not been eating, drinking or sleeping like he normally would be. He feels the symptoms are secondary to dehydration. He currently denies any chest pain, shortness of breath, fevers or chills, cough, abdominal pain, nausea, vomiting, diarrhea, focal numbness or weakness, severe headache, dizziness or slurred speech. He was diagnosed with shingles earlier this month which is currently healing- pt's daughters state that the lesions appear much improved from when he was originally diagnosed. - Related Data Home Medications Medication Instructions Recorded Confirmed Tamsulosin [Flomax] 0.4 mg PO HS 08/08/19 08/30/24 Atorvastatin Calcium [Lipitor] 80 mg PO DAILY 06/07/23 08/30/24 oxyBUTYnin chloride 5 mg PO DAILY 06/07/23 08/30/24 Butalb/APAP/Caff 50-325-40Mg 1 tab PO BID PRN 08/06/24 08/30/24 [Fioricet 50-325-40] Dorzolamide-Timol 2.23%/0.68% 1 drop BOTH EYES BID 08/06/24 08/30/24 [Cosopt] Losartan-Hctz 50-12.5 mg [Hyzaar 1 tab PO DAILY 08/06/24 08/30/24 50-12.5] tiZANidine [Zanaflex] 4 mg PO BID 08/06/24 08/30/24 Cetirizine HCl [Zyrtec] 10 mg PO DAILY 08/27/24 08/30/24 Previous Rx's Medication Instructions Recorded oxyCODONE HCL [OxyIR] 5 mg PO Q6H PRN 3 Days #6 tab 08/30/24 predniSONE [Deltasone] 60 mg PO DAILY 7 Days #21 tab 11/05/24 valACYclovir HCL [Valtrex] 1,000 mg PO Q8H 10 Days #30 tablet 11/05/24 Allergies Allergy/AdvReac Type Severity Reaction Status Date / Time No Known Allergies Allergy Verified 11/05/24 07:54 Review of Systems ROS Statement: Those systems with pertinent positive or pertinent negative responses have been documented in the HPI. ROS Other: All systems not noted in ROS Statement are negative. Past Medical History Past Medical History: Cancer, Hyperlipidemia, Hypertension, Musculoskeletal Disorder, Osteoarthritis (OA) Additional Past Medical History / Comment(s): hx. 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 Bladder spasms umbilical hernia History of Any Multi-Drug Resistant Organisms: None Reported Past Surgical History: Appendectomy, Back Surgery, Orthopedic Surgery Additional Past Surgical History / Comment(s): left knee surg., LEFT hand MIDDLE surg. cervical fusion c3-4,c4-5, c5-6, c6-7, LOWER BACK DISC SX Past Anesthesia/Blood Transfusion Reactions: No Reported Reaction Past Psychological History: No Psychological Hx Reported Smoking Status: Former smoker - Past Family History Father Family Medical History: Cancer Mother Family Medical History: Myocardial Infarction ([place]) General Exam - General Exam Comments Initial Comments: PE: CONSTITUTIONAL: No apparent distress, well appearing SKIN: Warm, dry, no jaundice, hives or petechiae; erythema with small scabs across right forehead in dermatomal distribution EYES: Pupils are equally round, extraocular movements intact without nystagmus, clear conjunctiva, non-icteric sclera HENT: Normocephalic, atraumatic, moist mucus membranes, oropharynx clear without exudates NECK: , Full range of motion, normal appearance PULMONARY: Clear to auscultation without wheezes, rhonchi, or rales, normal excursion, no accessory muscle use and no stridor CARDIOVASCULAR: Regular rate, rhythm, normal S1 and S2. No appreciated murmurs, rubs or gallops. Strong radial pulses with intact distal perfusion. No lower extremity edema GASTROINTESTINAL: Soft, active bowel sounds throughout, non-tender, non- distended, no palpable masses, no rebound or guarding. No hepatosplenomegaly MUSCULOSKELETAL: Extremities have no gross deformity, no edema, redness, or swelling. NEUROLOGIC:_a/o x 3, GCS 15, normal mentation and speech. Moves all extremities x 4 without motor or sensory deficit, cranial nerves: II (visual mccloud without defects), III, IV and (extraocular movements are intact, pupils are equal with normal reaction to light), V (intact facial sensation and jaw opening), VII (no facial droop), IX and X (normal palate movement, midline uvula, normal voice), XI (symmetrical shoulder shrug and lateral head rotation against resistance), XII (midline tongue protrusion). Motor strength is 5/5 in all extremities. No abnormal movements. Normal muscle tone. Sensation to light touch is intact bilaterally. No cerebellar signs ([id number]-am-[id number], oxgg-jg-[id number], and rapid alternating movements are normal), patient ambulates with a steady gait PSYCHIATRIC:_normal mood and affect, thought process is clear and linear Limitations: no limitations Course Vital Signs 11/14/24 11/14/24 18:43 22:43 Temperature 97.8 F 97 F L Pulse Rate 78 83 Respiratory 20 16 Rate Blood Pressure 95/64 113/99 O2 Sat by Pulse 98 99 Oximetry EKG Findings - EKG Comments: EKG Findings:: Sinus rhythm, rate 76 bpm, QT/QTc 420/450 ms RI interval 151 ms, normal axis, no acute ST elevations or depressions, right bundle branch block, T wave inversion lead V1 Medical Decision Making - Medical Decision Making Was pt. sent in by a medical professional or institution (, PA, WALL COVERING INSTALLER, urgent care, hospital, or residential...) When possible be specific @ -No Did you speak to anyone other than the patient for history (EMS, parent, family, police, friend...)? What history was obtained from this source Spoke with patient's daughters who assisted in providing history Did you review nursing and triage notes (agree or disagree)? Why? @ -I reviewed and agree with nursing and triage notes Differential Diagnosis (chest pain, altered mental status, abdominal pain women, abdominal pain men, vaginal bleeding, weakness, fever, dyspnea, syncope, headache, dizziness, GI bleed, back pain, seizure, CVA, palpatations, mental health, musculoskeletal)? @Differential diagnose transplant over top considerations include Differential diagnosis remains broad however top considerations include near syncope, hypovolemia/dehydration, exhaustion, TIA, ACS, anemia, hypoglycemia, electrolyte abnormality, this is not an all inclusive list EKG interpreted by me (3pts min.). @ -As above X-rays interpreted by me (1pt min.). Personally reviewed CXR I see no evidence of consolidation, pleural effusion or pneumothorax I agree with radiologist interpretation CT interpreted by me (1pt min.). Personally reviewed CT brain, I see now evidence of hemorrhage or mass effect, reviewed CTA, I see no evidence of LVO or dissection, I agree with radiologist interpretation U/S interpreted by me (1pt. min.). @ -None done What testing was considered but not performed or refused? (CT, X-rays, U/S, labs)? Why? @ -None What meds were considered but not given or refused? Why? @ -None Did you discuss the management of the patient with other professionals (professionals i.e. , PA, WALL COVERING INSTALLER, lab, RT, psych nurse, hospital social worker, tester semiconductor packages, teacher, planned giving officer, egg caser)? Give summary @ -No Was smoking cessation discussed for >3mins.? @ -No Was critical care preformed (if so, how long)? @ -No Were there social determinants of health that impacted care today? How? (Homelessness, low income, unemployed, alcoholism, drug addiction, transportation, low edu. Level, literacy, decrease access to med. care, assisted, rehab)? @ -No Was there de-escalation of care discussed even if they declined (Discuss DNR or withdrawal of care, Hospice)? @ -No What co-morbidities impacted this encounter? (DM, HTN, Smoking, COPD, CAD, Cancer, CVA, ARF, Chemo, Hep., AIDS, mental health diagnosis, sleep apnea, morbid obesity)? @ -None Was patient admitted / discharged? Hospital course, mention meds given and route, prescriptions, significant lab abnormalities, going to OR and other pertinent info. @Discharged- Patient is a 74-year-old gentleman, history hypertension, hyperlipidemia presenting today for near syncope. On assessment patient denies any symptoms currently. He has no focal neurologic deficits. He is able to stand independently and ambulate with a steady gait. BP borderline hypotensive on arrival however MAP 78, Vital signs are stable. He is eager to go home. He is accompanied by his daughters, who confirm pt's history. Initial orders, including comprehensive labs, CT brain, CTA head and neck were ordered by triage provider. I discussed with the patient obtaining imaging, comprehensive labs, to which he was agreeable. Labs and imaging reviewed. Grossly within normal limits. Abnormal values not concerning for acute pathology related to presenting complaint, with exception of mild hyponatremia. Ordered 1 litre IV NS. Updated pt and daughters to findings and discussed plan for discharge home, pt and daughters comfortable with POC. Patient was discharged in stable condition. In my medical judgment there is currently no evidence of an immediate life- threatening or surgical condition. Discharge is therefore indicated at this time. Discharge treatment instructions, follow up instructions, and appropriate emergency department return precautions were discussed with the patient and/or medical decision maker. Patient and/or medical decision maker expressed underst anding of and agreed with the treatment plan, follow up instructions, and emergency department return precaution. All patient's and/or medical decision maker's questions were answered. The patient was instructed to return to the ED for any changes in symptoms, persistent symptoms, inability to obtain proper follow-up or for any further concerns. Patient received verbal and written instructions for this condition. Undiagnosed new problem with uncertain prognosis? @ -No Drug Therapy requiring intensive monitoring for toxicity (Heparin, Nitro, Insulin, Cardizem)? @ -No Were any procedures done? @ -No Diagnosis/symptom? @Near-syncope Acute, or Chronic, or Acute on Chronic? @ -Acute Uncomplicated (without systemic symptoms) or Complicated (systemic symptoms)? @Complicated Side effects of treatment? @ -No Exacerbation, Progression, or Severe Exacerbation? @ -No Poses a threat to life or bodily function? How? (Chest pain, [place], [place], pneumonia, PE, COPD, DKA, ARF, appy, cholecystitis, CVA, Diverticulitis, Homicidal, Suicidal, threat to staff... and all critical care pts) @ -No - Lab Data Result diagrams: 11/14/24 18:57 11/14/24 19:47 Lab Results 11/14/24 11/14/24 11/14/24 Range/Units 18:57 18:57 18:57 WBC 9.19 (4.50-10.00) 10*3/uL RBC 4.95 (4.40-5.60) 10*6/uL Hgb 15.6 (13.0-17.0) g/dL Hct 45.4 (39.6-50.0) % MCV 91.7 (80.0-97.0) fL MCH 31.5 (27.0-32.0) pg MCHC 34.4 (32.0-37.0) g/dL Plt Count 194 (140-440) 10*3/uL MPV 10.5 (9.5-12.2) fL Immature Gran % (Auto) 0.4 % Neutrophils % 74.0 % Lymphocytes % 16.4 % Monocytes % 7.3 % Eosinophils % 1.6 % Basophils % 0.3 % Immature Gran # 0.04 (0.00-0.04) 10*3/uL Neutrophils # 6.79 (1.80-7.70) 10*3/uL Lymphocytes # 1.51 (0.90-5.00) 10*3/uL Monocytes # 0.67 (0.20-1.00) 10*3/uL Eosinophils # 0.15 (0.04-0.35) 10*3/uL Basophils # 0.03 (0.00-0.10) 10*3/uL PT 13.0 H (10.0-12.5) sec INR 1.2 H (<1.2) Sodium (137-145) mmol/L Potassium (3.5-5.1) mmol/L Chloride (98-107) mmol/L Carbon Dioxide (22-30) mmol/L Anion Gap mmol/L BUN (9-20) mg/dL Creatinine (0.66-1.25) mg/dL Est GFR (CKD-EPI)AfAm (>60 ml/min/1.73 sqM) Est GFR (CKD-EPI)NonAf (>60 ml/min/1.73 sqM) Glucose (74-99) mg/dL Calcium (8.4-10.2) mg/dL Total Bilirubin (0.2-1.3) mg/dL AST (17-59) U/L ALT (4-49) U/L Alkaline Phosphatase (38-126) U/L Troponin I 0.013 (0.000-0.034) ng/mL Total Protein (6.3-8.2) g/dL Albumin (3.5-5.0) g/dL 11/14/ Range/Units 19:47 WBC (4.50-10.00) 10*3/uL RBC (4.40-5.60) 10*6/uL Hgb (13.0-17.0) g/dL Hct (39.6-50.0) % MCV (80.0-97.0) fL MCH (27.0-32.0) pg MCHC (32.0-37.0) g/dL Plt Count (140-440) 10*3/uL MPV (9.5-12.2) fL Immature Gran % (Auto) % Neutrophils % % Lymphocytes % % Monocytes % % Eosinophils % % Basophils % % Immature Gran # (0.00-0.04) 10*3/uL Neutrophils # (1.80-7.70) 10*3/uL Lymphocytes # (0.90-5.00) 10*3/uL Monocytes # (0.20-1.00) 10*3/uL Eosinophils # (0.04-0.35) 10*3/uL Basophils # (0.00-0.10) 10*3/uL PT (10.0-12.5) sec INR (<1.2) Sodium 133 L (137-145) mmol/L Potassium 4.0 (3.5-5.1) mmol/L Chloride 103 (98-107) mmol/L Carbon Dioxide 22 (22-30) mmol/L Anion Gap 8 mmol/L BUN 15 (9-20) mg/dL Creatinine 0.84 (0.66-1.25) mg/dL Est GFR (CKD-EPI)AfAm >90 (>60 ml/min/1.73 sqM) Est GFR (CKD-EPI)NonAf 86 (>60 ml/min/1.73 sqM) Glucose 109 H (74-99) mg/dL Calcium 8.6 (8.4-10.2) mg/dL Total Bilirubin 0.8 (0.2-1.3) mg/dL AST 26 (17-59) U/L ALT 24 (4-49) U/L Alkaline Phosphatase 59 (38-126) U/L Troponin I (0.000-0.034) ng/mL Total Protein 6.5 (6.3-8.2) g/dL Albumin 3.6 (3.5-5.0) g/dL Disposition Clinical Impression: Near syncope, Hyponatremia Disposition: HOME SELF-CARE Condition: Good Instructions (If sedation given, give patient instructions): Near Syncope (ED) Additional Instructions: Every disease is a spectrum and a small chance still exists that a serious condition could develop, for this reason, please monitor yourself closely for new, changing or worsening symptoms, return of symptoms, changes in vision, loss of vision, severe headache, dizziness, numbness, weakness, slurred speech or confusion, fever, inability to tolerate/keep down fluids or your medications, inability to follow up with outpatient providers as instructed and should you experience these symptoms or should you have any further concerns for your wellbeing please return to the ED or call 911 immediately. Please drink plenty of fluids and get plenty of rest. PLEASE call your primary care physician as soon as possible to arrange / discuss plan for followup appointment. Appointment in the next 1-3 days is strongly encouraged if possible. PLEASE let us know here before you leave if there is anything further we can do to be of any assistance. Take care and feel Better! Is patient prescribed a controlled substance at d/c from ED?: No Referrals: None,Stated [Primary Care Provider] - 1-2 days
[2024-11-14] MEDS: SODIUM CHLORIDE 0.9% 1,000 ML IV ONE (21:22)
--- NOTE | 2024-11-14 22:12 | CT ---
EXAMINATION TYPE: CT brain wo con CT DLP: 1160 mGycm, Automated exposure control for dose reduction was used. DATE OF EXAM: 11/14/2024 9:51 PM COMPARISON: MR brain/orbits 01/25/2022 CLINICAL INDICATION:Male, 74 years old with history of Abnormal gait, right-sided vision loss, Dizzin ess TECHNIQUE: Brain: Multiple axial CT images of the brain were obtained without IV contrast. . Coronal and sagitta l reformats reviewed. FINDINGS: Brain: Extra-axial spaces: No abnormal extra-axial fluid collections. Ventricular system: Within normal limits Cerebral parenchyma: Cerebral atrophy. No acute intraparenchymal hemorrhage or mass effect. The trejo -white junction is well differentiated. Scattered hypoattenuating areas are seen within the periventr icular white matter. Cerebellum: Unremarkable. Mass effect: No evidence of midline shift. Intracranial vasculature: Atherosclerotic calcifications of the intracranial vessels. Soft tissues: Normal. Calvarium/osseous structures: No depressed skull fracture. Paranasal sinuses and mastoid air cells: Mastoid air cells are clear. Mild mucosal thickening of the inferior right maxillary sinus. The remaining paranasal sinuses are clear. Visualized orbits: Orbital contents are intact. IMPRESSION: 1. No acute intracranial process. 2. Nonspecific white matter changes, likely secondary to chronic small vessel ischemic disease. [facility], , 11/14/2024 10:10 PM
--- NOTE | 2024-11-14 22:23 | CT ---
EXAMINATION TYPE: CT angio head neck CT DLP: 1298.4 mGycm, Automated exposure control for dose reduction was used. DATE OF EXAM: 11/14/2024 9:57 PM COMPARISON: CT brain 11/14/2024. CLINICAL INDICATION:Male, 74 years old with history of Abnormal gait, right-sided vision loss; PHH, d izziness and visual disturbance TECHNIQUE: Axially acquired helical CT angiogram of the head and neck was obtained with contrast util izing 75 cc of Isovue-370 administered intravenously. Axial images are supplemented with 3D reconstru ctions which were post-processed at an independent workstation. NASCET criteria used. MIP imaging performed on a separate workstation and submitted for review. FINDINGS: CTA HEAD: No evidence of acute intracranial hemorrhage, mass effect, or midline shift. The ventricles, sulci, a nd cisterns are unremarkable. The visualized portions of the internal carotid arteries, middle cerebral arteries, anterior cerebral arteries, and posterior cerebral arteries are patent. 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 Th e right A2 segment is supplied by the left ABHIJIT A1 segment. This is an anatomic variant. The basilar and vertebral arteries are patent. CTA NECK: Right Carotid System: The common carotid artery and external carotid artery are patent. The carotid bifurcation demonstrate s no evidence of hemodynamically significant stenosis. The remaining portions of the internal carotid artery demonstrate normal size without significant narrowing. Left Carotid System: The common carotid artery and external carotid artery are patent. Mild calcified plaque involving the common carotid artery. Minimal calcified plaque at the carotid bifurcation extending into the proxim al internal carotid artery. The carotid bifurcation demonstrates no evidence of hemodynamically signi ficant stenosis. The remaining portions of the internal carotid artery demonstrate normal size withou t significant narrowing. Vertebral arteries are patent without evidence hemodynamically significant stenosis. Right vertebral artery is dominant. Mild calcified plaque involving the V4 segment of the right vertebral artery. There is a three-vessel aortic arch. The origins of the great vessels are patent. No evidence of hemo dynamically significant stenosis. Post surgical changes from ACDF C3-C7. Degenerative disc disease as C7-T1. IMPRESSION: 1. No evidence of dissection of the cervical internal carotid arteries or vertebral arteries or any e vidence of significant stenosis at the carotid bifurcations. 2. No evidence of high-grade stenosis or intracranial aneurysm. [facility], , 11/14/2024 10:21 PM
[2024-11-14 22:44] VITALS: BP 113/99; PULSE 83; RESP 16; TEMP 97
== END 2024-11-14 22:50 | disposition home or self-care (01) ==
LOC: EC 18:33
DX: R55 Syncope and collapse (principal); E87.1 Hypo-osmolality and hyponatremia; I10 Essential (primary) hypertension; Z87.891 Personal history of nicotine dependence
CPT/HCPCS: 36415; 93005; 80053; 84484; 85025; 85610; 71046; 70496; 70450; 70498; 99284; 96360; Q9967